=== PATIENT | female | born 1985 | race Caucasian/White ===

== ENCOUNTER 2017-06-27 17:51 | Emergency (ER) | payer OTHER ==
[2017-06-27 17:56] VITALS: BP 142/82; PULSE 78; RESP 18; TEMP 97.3
--- NOTE | 2017-06-27 18:18 | ED ---
ENT HPI - General Chief complaint: ENT Stated complaint: dental/facial pain Time Seen by Provider: 06/27/17 18:08 Source: patient, RN notes reviewed Mode of arrival: ambulatory Limitations: no limitations - History of Present Illness Initial comments: This is a 31-year-old female who presents to the emergency department with chief complaint of dental pain. Patient states that for one week she's had a flare up of her seasonal allergies. She states that she began with a runny nose and watery, itchy eyes. She states that then a couple of days ago she developed some sinus congestion and pressure. She states that yesterday she developed right upper dental pain and facial swelling. She states that her wisdom tooth never came in correctly and that she never saw a dentist about this. She is concerned for infection. Denies fevers or chills, chest pain or shortness breath, abdominal pain, nausea or vomiting. - Related Data Previous Rx's Medication Instructions Recorded Hydrocodone/Acetaminophen [[place] 1 each PO Q6HR PRN #12 tab 12/13/13 5-325] Penicillin V Potassium [Pen Vee K] 500 mg PO QID 10 Days tab 06/27/17 Allergies Allergy/AdvReac Type Severity Reaction Status Date / Time No Known Allergies Allergy Verified 06/27/17 17:56 Review of Systems ROS Statement: Those systems with pertinent positive or pertinent negative responses have been documented in the HPI. ROS Other: All systems not noted in ROS Statement are negative. Past Medical History Past Medical History: No Reported History History of Any Multi-Drug Resistant Organisms: None Reported Past Surgical History: Section, Tubal Ligation Past Psychological History: No Psychological Hx Reported Smoking Status: Current every day smoker Past Alcohol Use History: Occasional Past Drug Use History: None Reported General Exam - General Exam Comments Initial Comments: General: Awake and alert, well-developed; in no apparent distress. HEENT: Head atraumatic, normocephalic. Mild right-sided facial swelling. Pupils are equal, round and reactive to light. Extraocular movements intact. Oropharynx moist without erythema or exudate. Poor dentition throughout with multiple missing teeth and dental caries. There is tenderness on palpation of tooth #1, which is fractured. No masses or areas of fluctuance noted. Neck: Supple. Normal ROM. Cardiovascular: Regular rate and rhythm. No murmurs, rubs or gallops. Chest symmetrical. Respiratory: Lungs clear to auscultation bilaterally. No wheezes, rales or rhonchi. Normal respiratory effort with no use of accessory muscles. Musculoskeletal: Normal ROM, no tenderness bilateral upper and lower extremities. Ambulating normally. Skin: [place], warm and dry without rashes or lesions. Neurological: Alert and oriented x3. CN II-XII grossly intact. Speech is fluent and answers are appropriate. No focal neuro deficits. Psychiatric: Normal mood and affect. No overt signs of depression or anxiety noted. Limitations: no limitations Course Vital Signs 06/27/17 17:53 Temperature 97.3 F L Pulse Rate 78 Respiratory 18 Rate Blood Pressure 142/82 O2 Sat by Pulse 100 Oximetry Medical Decision Making - Medical Decision Making This is a 31-year-old female who presents to the emergency department with chief complaint of dental pain. Patient has mild right-sided facial swelling and tenderness of tooth #1 which is fractured. Vital signs are stable and patient is in no acute distress. Patient will be started on Penicillin VK. She will be given contact information for the [facility] dental clinic. Patient is in agreement with plan and voices understanding. She'll be discharged home at this time. All questions answered. Disposition Clinical Impression: Seasonal allergies, Toothache Disposition: HOME SELF-CARE Condition: Good Instructions: Toothache (ED), Allergic Rhinitis (ED) Additional Instructions: Please take medications as prescribed. Please follow up with primary care provider within 1-2 days. Return to emergency department if symptoms should worsen or any concerns arise. Please follow up with the [facility] dental clinic. [facility] [place] [address]. Phone number for new patients or for existing patients. Prescriptions: Penicillin V Potassium [Pen Vee K] 500 mg PO QID 10 Days tab Is patient prescribed a controlled substance at d/c from ED?: No Referrals: Rafael Lewis MD [Primary Care Provider] - 1-2 days Time of Disposition: 18:17
== END 2017-06-27 18:44 | disposition home or self-care (01) ==
LOC: EC 17:51
DX: J30.2 Other seasonal allergic rhinitis (principal); K08.89 Other specified disorders of teeth and supporting structures; S02.5XXA Fracture of tooth (traumatic), initial encounter for closed fracture; F17.200 Nicotine dependence, unspecified, uncomplicated; X58.XXXA Exposure to other specified factors, initial encounter
CPT/HCPCS: 99283

== ENCOUNTER 2017-12-09 04:37 | Inpatient (IN) | payer OTHER ==
[2017-12-09] MEDS ORDERED: ONDANSETRON 4 MG/2 ML VIAL IVP STA ×2 (05:16→05:49)
[2017-12-09] MEDS ORDERED: SODIUM CHLORIDE 0.9% 500 ML 500 ML IV STA (05:27)
[2017-12-09 05:30] LABS: Basophils % (A) 0 %; Eosinophils # (A) 0.5 k/uL (0-0.7); Eosinophils % (A) 3 %; HCT 39.1 % (34.0-46.0); HGB 13.1 gm/dL (11.4-16.0); Lymphocytes % (A) 11 %; MCH 29.9 pg (25.0-35.0); MCHC 33.4 g/dL (31.0-37.0); MCV 89.5 fL (80.0-100.0); Mean Platelet Volume 7.4; Monocytes # (A) 0.6 k/uL (0-1.0); Monocytes % (A) 3 %; Neutrophils # (A) 15.4 k/uL (1.3-7.7); Neutrophils % (A) 82 %; Platelet Count 350 k/uL (150-450); RBC 4.36 m/uL (3.80-5.40); WBC 18.8 k/uL (3.8-10.6)
[2017-12-09 05:36] LABS: Appearance,Urine Cloudy (Clear); Bacteria,Urine Occasional /hpf; Bilirubin,Urine Negative (Negative); Blood,Urine Trace (Negative); Color,Urine Yellow; Glucose,Urine (UA) Negative (Negative); Ketones,Urine Negative (Negative); Leukocyte Esterase,Urine Small (Negative); Mucus,Urine Many /hpf; Nitrite,Urine Negative (Negative); PH, Urine 6.5 (5.0-8.0); Protein,Urine Trace (Negative); RBC,Urine 3 /hpf (0-5); Specific Gravity,Urine 1.018 (1.001-1.035); Squamous Epithelial Cell,Urine 41 /hpf (0-4); WBC,Urine 21 /hpf (0-5)
[2017-12-09 05:39] LABS: ALT 25 U/L (9-52); AST 15 U/L (14-36); Albumin 3.9 g/dL (3.5-5.0); Alkaline Phosphatase 85 U/L (38-126); Amylase 41 U/L (30-110); Anion Gap 5 mmol/L; Blood Urea Nitrogen 9 mg/dL (7-17); Calcium 9.3 mg/dL (8.4-10.2); Carbon Dioxide 26 mmol/L (22-30); Chloride 109 mmol/L (98-107); Glucose 122 mg/dL (74-99); Lipase 84 U/L (23-300); Potassium 4.2 mmol/L (3.5-5.1); Sodium 140 mmol/L (137-145); Total Bilirubin 0.3 mg/dL (0.2-1.3)
[2017-12-09] MEDS ORDERED: MORPHINE SULFATE 4 MG/ML SYRINGE IV STA (05:49)
--- NOTE | 2017-12-09 05:54 | ED ---
Abdominal Pain HPI - General Source: patient Mode of arrival: ambulatory Limitations: no limitations - History of Present Illness MD Complaint: abdominal pain -: hour(s) Location: RUQ Radiation: back Migration to: no migration Severity: severe Quality: stabbing Consistency: constant Improves With: nothing Worsens With: nothing Associated Symptoms: nausea, vomiting <Cisco Weeks - Last Filed: 12/09/17 06:43> <Car Delacruz - Last Filed: 12/09/17 08:20> - General Chief Complaint: Abdominal Pain Stated Complaint: vomiting Time Seen by Provider: 12/09/17 04:49 - History of Present Illness Initial Comments: This patient is a 32-year-old woman who presents to be evaluated for right upper quadrant abdominal pain as well as nausea and vomiting. The patient states that she has been having intermittent symptoms like this going back until she was with her daughter, proximal 4 years ago. She states that at that time she had an ultrasound that showed a lot of gallstones. She states that sometimes when she eats certain things this seems to flareup. She did have some fried catfish around 10 PM. She started having symptoms around midnight, including right upper quadrant pain that radiated to the back as well as multiple rounds of nausea and vomiting. The pain is sharp, was severe but has abated a little bit. She has not noted other worsening or relieving factors. (Cisco Weeks) - Related Data Previous Rx's Medication Instructions Recorded Hydrocodone/Acetaminophen [[place] 1 each PO Q6HR PRN #12 tab 12/13/13 5-325] Penicillin V Potassium [Pen Vee K] 500 mg PO QID 10 Days tab 06/27/17 Allergies Allergy/AdvReac Type Severity Reaction Status Date / Time No Known Allergies Allergy Verified 12/09/17 04:44 Review of Systems ROS Other: All systems not noted in ROS Statement are negative. Constitutional: Denies: fever, chills Respiratory: Denies: cough, dyspnea Cardiovascular: Denies: chest pain, palpitations, edema Gastrointestinal: Reports: abdominal pain, nausea, vomiting. Denies: diarrhea, constipation, hematemesis, melena, hematochezia Genitourinary: Denies: dysuria, hematuria Musculoskeletal: Denies: back pain Skin: Denies: rash Neurological: Denies: headache <Cisco Weeks - Last Filed: 12/09/17 06:43> ROS Other: All systems not noted in ROS Statement are negative. <Car Delacruz - Last Filed: 12/09/17 08:20> ROS Statement: Those systems with pertinent positive or pertinent negative responses have been documented in the HPI. Past Medical History Past Medical History: No Reported History Additional Past Medical History / Comment(s): gall stones History of Any Multi-Drug Resistant Organisms: None Reported Past Surgical History: Section, Tubal Ligation Past Psychological History: No Psychological Hx Reported Smoking Status: Current every day smoker Past Alcohol Use History: Occasional Past Drug Use History: None Reported <Cisco Weeks - Last Filed: 12/09/17 06:43> General Exam Limitations: no limitations General appearance: alert, in no apparent distress Head exam: Present: atraumatic, normocephalic Eye exam: Present: normal appearance. Absent: scleral icterus, conjunctival injection Respiratory exam: Present: normal lung sounds bilaterally. Absent: respiratory distress, wheezes, rales, rhonchi, stridor Cardiovascular Exam: Present: regular rate, normal rhythm, normal heart sounds. Absent: systolic murmur, diastolic murmur, rubs, gallop GI/Abdominal exam: Present: soft, tenderness. Absent: distended, guarding, rebound, rigid, mass, pulsatile mass Extremities exam: Present: normal inspection, normal capillary refill. Absent: pedal edema, calf tenderness Back exam: Present: normal inspection. Absent: CVA tenderness (R), CVA tenderness (L) Neurological exam: Present: alert Skin exam: Present: warm, dry, intact, normal color. Absent: rash <Cisco Weeks - Last Filed: 12/09/17 06:43> Vital Signs 12/09/17 04:42 Temperature 97.7 F Pulse Rate 56 L Respiratory 18 Rate Blood Pressure 135/90 O2 Sat by Pulse 100 Oximetry Medical Decision Making - Lab Data Result diagrams: 12/09/17 05:13 12/09/17 05:13 <Cisco Weeks - Last Filed: 12/09/17 06:43> - Lab Data Result diagrams: 12/09/17 05:13 12/09/17 05:13 <Car Delacruz - Last Filed: 12/09/17 08:20> - Lab Data Lab Results 12/09/17 12/09/17 12/09/17 Range/Units 05:13 05:13 05:13 WBC 18.8 H (3.8-10.6) k/uL RBC 4.36 (3.80-5.40) m/uL Hgb 13.1 (11.4-16.0) gm/dL Hct 39.1 (34.0-46.0) % MCV 89.5 (80.0-100.0) fL MCH 29.9 (25.0-35.0) pg MCHC 33.4 (31.0-37.0) g/dL RDW 13.0 (11.5-15.5) % Plt Count 350 (150-450) k/uL Neutrophils % 82 % Lymphocytes % 11 % Monocytes % 3 % Eosinophils % 3 % Basophils % 0 % Neutrophils # 15.4 H (1.3-7.7) k/uL Lymphocytes # 2.0 (1.0-4.8) k/uL Monocytes # 0.6 (0-1.0) k/uL Eosinophils # 0.5 (0-0.7) k/uL Basophils # 0.0 (0-0.2) k/uL Sodium 140 (137-145) mmol/L Potassium 4.2 (3.5-5.1) mmol/L Chloride 109 H (98-107) mmol/L Carbon Dioxide 26 (22-30) mmol/L Anion Gap 5 mmol/L BUN 9 (7-17) mg/dL Creatinine 0.64 (0.52-1.04) mg/dL Est GFR (CKD-EPI)AfAm >90 (>60 ml/min/1.73 sqM) Est GFR (CKD-EPI)NonAf >90 (>60 ml/min/1.73 sqM) Glucose 122 H (74-99) mg/dL Calcium 9.3 (8.4-10.2) mg/dL Total Bilirubin 0.3 (0.2-1.3) mg/dL AST 15 (14-36) U/L ALT 25 (9-52) U/L Alkaline Phosphatase 85 (38-126) U/L Total Protein 7.0 (6.3-8.2) g/dL Albumin 3.9 (3.5-5.0) g/dL Amylase 41 (30-110) U/L Lipase 84 (23-300) U/L Urine Color Urine Appearance (Clear) Urine pH (5.0-8.0) Ur Specific [place] (1.001-1.035) Urine Protein (Negative) Urine Glucose (UA) (Negative) Urine Ketones (Negative) Urine Blood (Negative) Urine Nitrite (Negative) Urine Bilirubin (Negative) Urine Urobilinogen (<2.0) mg/dL Ur Leukocyte Esterase (Negative) Urine RBC (0-5) /hpf Urine WBC (0-5) /hpf Ur Squamous Epith Cells (0-4) /hpf Urine Bacteria (None) /hpf Urine Mucus (None) /hpf Urine HCG, Qual Not Detected (Not Detectd) 12/09/17 Range/Units 05:13 WBC (3.8-10.6) k/uL RBC (3.80-5.40) m/uL Hgb (11.4-16.0) gm/dL Hct (34.0-46.0) % MCV (80.0-100.0) fL MCH (25.0-35.0) pg MCHC (31.0-37.0) g/dL RDW (11.5-15.5) % Plt Count (150-450) k/uL Neutrophils % % Lymphocytes % % Monocytes % % Eosinophils % % Basophils % % Neutrophils # (1.3-7.7) k/uL Lymphocytes # (1.0-4.8) k/uL Monocytes # (0-1.0) k/uL Eosinophils # (0-0.7) k/uL Basophils # (0-0.2) k/uL Sodium (137-145) mmol/L Potassium (3.5-5.1) mmol/L Chloride (98-107) mmol/L Carbon Dioxide (22-30) mmol/L Anion Gap mmol/L BUN (7-17) mg/dL Creatinine (0.52-1.04) mg/dL Est GFR (CKD-EPI)AfAm (>60 ml/min/1.73 sqM) Est GFR (CKD-EPI)NonAf (>60 ml/min/1.73 sqM) Glucose (74-99) mg/dL Calcium (8.4-10.2) mg/dL Total Bilirubin (0.2-1.3) mg/dL AST (14-36) U/L ALT (9-52) U/L Alkaline Phosphatase (38-126) U/L Total Protein (6.3-8.2) g/dL Albumin (3.5-5.0) g/dL Amylase (30-110) U/L Lipase (23-300) U/L Urine Color Yellow Urine Appearance Cloudy H (Clear) Urine pH 6.5 (5.0-8.0) Ur Specific [place] 1.018 (1.001-1.035) Urine Protein Trace H (Negative) Urine Glucose (UA) Negative (Negative) Urine Ketones Negative (Negative) Urine Blood Trace H (Negative) Urine Nitrite Negative (Negative) Urine Bilirubin Negative (Negative) Urine Urobilinogen 2.0 (<2.0) mg/dL Ur Leukocyte Esterase Small H (Negative) Urine RBC 3 (0-5) /hpf Urine WBC 21 H (0-5) /hpf Ur Squamous Epith Cells 41 H (0-4) /hpf Urine Bacteria Occasional H (None) /hpf Urine Mucus Many H (None) /hpf Urine HCG, Qual (Not Detectd) Disposition <Cisco Weeks - Last Filed: 12/09/17 06:43> Time of Disposition: 08:20 <Car Delacruz - Last Filed: 12/09/17 08:20> Clinical Impression: Acute cholecystitis Disposition: ADMITTED IP TO THIS HOSP Referrals: Rafael Lewis MD [Primary Care Provider] - 1-2 days
--- NOTE | 2017-12-09 07:50 | US ---
EXAMINATION TYPE: US abdomen limited DATE OF EXAM: 12/09/2017 COMPARISON: Previous study dated 09/14/2013. CLINICAL HISTORY: Pain, attention RUQ. abd pain EXAM MEASUREMENTS: Liver Length: 16.4 cm Gallbladder Wall: 0.4 cm CBD: 0.7 cm Right Kidney: 11.0 x 5.2 x 4.9 cm Pancreas: wnl Liver: wnl Gallbladder: multiple large stones seen with thickened wall Evidence for sonographic Garrison's sign: no, but on pain medication CBD: upper limits of normal for size Right Kidney: wnl Limited views of the pancreas are normal. The liver is normal in size without biliary dilatation. There are multiple stones within the gallbladder. The gallbladder wall is thickened measuring 4 mm. D istal common hepatic duct measures 7 mm. There is no sonographic Garrison's sign. The right kidney is unremarkable. IMPRESSION: CHOLELITHIASIS AND POSSIBLE CHOLECYSTITIS. THIS MAY BE CHRONIC IN NATURE.
[2017-12-09] MEDS ORDERED: SODIUM CHLORIDE 0.9% 1,000 ML IV ONE (08:21)
[2017-12-09] MEDS ORDERED: PIPERACILLIN-TAZOBACTAM 3.375 GM in SODIUM CHLORIDE 0.9% 100 ML IVPB STA (08:21)
[2017-12-09] MEDS ORDERED: NICOTINE 21MG/24HR PATCH TRANSDERM STA (08:54)
[2017-12-09 10:12] VITALS: BMI 31.1
[2017-12-09] MEDS ORDERED: NICOTINE 21MG/24HR PATCH TRANSDERM ONE (12:00)
--- NOTE | 2017-12-09 12:37 | P.GSHP ---
History of Present Illness H&P Date: 12/09/17 Chief Complaint: Acute cholecystitis 32-year-old female presents to the ER early this morning with complaints of right upper quadrant pain and vomiting. Symptoms began around 4:00. She has had episodes like this intermittently over the last few weeks. She first had a gallbladder attack while she was 5 years ago. She only had about 1-2 attacks between her and now. Complaining of right upper quadrant pain and intractable vomiting. Some radiation to the back. No fevers or chills. No change in the color of her skin urine or stool. White blood cell count elevated. Liver enzymes normal. - Review of Systems Comment: The patient denies any acute changes in vision or hearing, no dysphagia or odynophagia, no chest pain or shortness of breath, no dysuria or hematuria, no headache, no runny nose, no rectal bleeding or melena, no unexplained weight loss Past Medical History Past Medical History: No Reported History Additional Past Medical History / Comment(s): gall stones History of Any Multi-Drug Resistant Organisms: None Reported Past Surgical History: Section, Tubal Ligation Past Anesthesia/Blood Transfusion Reactions: No Reported Reaction Past Psychological History: Depression Additional Psychological History / Comment(s): not medicated Smoking Status: Current every day smoker Past Alcohol Use History: Occasional Past Drug Use History: None Reported - Past Family History Father Family Medical History: Thyroid Disorder Medications and Allergies Home Medications Medication Instructions Recorded Confirmed Type No Known Home Medications 12/09/17 12/09/17 History Allergies Allergy/AdvReac Type Severity Reaction Status Date / Time No Known Allergies Allergy Verified 12/09/17 11:55 Surgical - Exam Vital Signs Temp Pulse Resp BP Pulse Ox 97.7 F 56 L 18 135/90 100 12/09/17 04:42 12/09/17 04:42 12/09/17 04:42 12/09/17 04:42 12/09/17 04:42 Physical exam: General: Well-developed, well-nourished HEENT: Normocephalic, sclerae nonicteric Abdomen: Right upper quadrant tenderness, nondistended Extremities: No edema Neuro: Alert and oriented Results - Labs 12/09/17 05:13 12/09/17 05:13 Abnormal Lab Results - Last 24 Hours (Table) 12/09/17 12/09/17 12/09/17 Range/Units 05:13 05:13 05:13 WBC 18.8 H (3.8-10.6) k/uL Neutrophils # 15.4 H (1.3-7.7) k/uL Chloride 109 H (98-107) mmol/L Glucose 122 H (74-99) mg/dL Urine Appearance Cloudy H (Clear) Urine Protein Trace H (Negative) Urine Blood Trace H (Negative) Ur Leukocyte Esterase Small H (Negative) Urine WBC 21 H (0-5) /hpf Ur Squamous Epith Cells 41 H (0-4) /hpf Urine Bacteria Occasional H (None) /hpf Urine Mucus Many H (None) /hpf Diabetes panel 12/09/17 Range/Units 05:13 Sodium 140 (137-145) mmol/L Potassium 4.2 (3.5-5.1) mmol/L Chloride 109 H (98-107) mmol/L Carbon Dioxide 26 (22-30) mmol/L BUN 9 (7-17) mg/dL Creatinine 0.64 (0.52-1.04) mg/dL Glucose 122 H (74-99) mg/dL Calcium 9.3 (8.4-10.2) mg/dL AST 15 (14-36) U/L ALT 25 (9-52) U/L Alkaline Phosphatase 85 (38-126) U/L Total Protein 7.0 (6.3-8.2) g/dL Albumin 3.9 (3.5-5.0) g/dL Calcium panel 12/09/17 Range/Units 05:13 Calcium 9.3 (8.4-10.2) mg/dL Albumin 3.9 (3.5-5.0) g/dL Pituitary panel 12/09/17 Range/Units 05:13 Sodium 140 (137-145) mmol/L Potassium 4.2 (3.5-5.1) mmol/L Chloride 109 H (98-107) mmol/L Carbon Dioxide 26 (22-30) mmol/L BUN 9 (7-17) mg/dL Creatinine 0.64 (0.52-1.04) mg/dL Glucose 122 H (74-99) mg/dL Calcium 9.3 (8.4-10.2) mg/dL Adrenal panel 12/09/17 Range/Units 05:13 Sodium 140 (137-145) mmol/L Potassium 4.2 (3.5-5.1) mmol/L Chloride 109 H (98-107) mmol/L Carbon Dioxide 26 (22-30) mmol/L BUN 9 (7-17) mg/dL Creatinine 0.64 (0.52-1.04) mg/dL Glucose 122 H (74-99) mg/dL Calcium 9.3 (8.4-10.2) mg/dL Total Bilirubin 0.3 (0.2-1.3) mg/dL AST 15 (14-36) U/L ALT 25 (9-52) U/L Alkaline Phosphatase 85 (38-126) U/L Total Protein 7.0 (6.3-8.2) g/dL Albumin 3.9 (3.5-5.0) g/dL Assessment and Plan (1) Acute cholecystitis Narrative/Plan: Clinical scenario discussed in detail with the patient. We'll proceed with laparoscopic, possible open cholecystectomy. Risks of bleeding, infection, bile leak, bile duct injury, retained common bile duct stone, trocar injury, conversion to an open procedure, hernia, anesthesia related complications were reviewed. The patient understands and wishes to proceed. Current Visit: Yes Status: Acute Code(s): K81.0 - ACUTE CHOLECYSTITIS SNOMED Code(s): 61066269
[2017-12-09] MEDS ORDERED: IV FLUID CONTINUATION 600 ML IV ONE (12:53)
[2017-12-09] MEDS ORDERED: SUCCINYLCHOLINE CHLORIDE 100 MG/5 ML SYR IV ONE (12:53)
[2017-12-09] MEDS ORDERED: MIDAZOLAM 2 MG/2 ML VIAL ONE (12:53)
[2017-12-09] MEDS ORDERED: LIDOCAINE 1% INJ 10MG/ML (20 ML MDV) ONE (12:53)
[2017-12-09] MEDS ORDERED: ROCURONIUM BROMIDE 10 MG/ML 10 ML VIAL IV ONE (12:53)
[2017-12-09] MEDS ORDERED: GLYCOPYRROLATE 0.2 MG/ML 2 ML VIAL ONE (12:53)
[2017-12-09] MEDS ORDERED: HYDROmorphone (PF) 1 MG/ML ONE (12:53)
[2017-12-09] MEDS ORDERED: NEOSTIGMINE 1 MG/ML 10 ML VIAL ONE (12:53)
[2017-12-09] MEDS ORDERED: fentaNYL (PF) 50 MCG/ML 2 ML AMP ONE (12:53)
[2017-12-09] MEDS ORDERED: KETOROLAC 30 MG/ML 1 ML VIAL ONE (12:53)
[2017-12-09] MEDS ORDERED: PROPOFOL 10 MG/ML 20 ML VIAL IV ONE (12:53)
[2017-12-09] MEDS ORDERED: BUPIVACAIN-EPI 0.25%-1:200,000 30 ML VIAL SQ ONE ×2 (13:21→14:19)
[2017-12-09] MEDS ORDERED: LACTATED RINGERS 1,000 ML IV ONE (14:19)
[2017-12-09] MEDS ORDERED: METOCLOPRAMIDE 5 MG/ML 2 ML VIAL IVP PRN (14:21)
[2017-12-09] MEDS ORDERED: NALOXONE 0.4 MG/ML 1 ML VIAL IV PRN (14:21)
[2017-12-09] MEDS ORDERED: HYDROcodone/APAP 5-325MG 1 EACH TAB PO PRN (14:21)
[2017-12-09] MEDS ORDERED: ONDANSETRON 4 MG/2 ML VIAL IVP PRN (14:21)
--- NOTE | 2017-12-09 14:26 | P.OP ---
Date of Procedure: 12/09/17 Procedure(s) Performed: PREOPERATIVE DIAGNOSIS: Acute cholecystitis POSTOPERATIVE DIAGNOSIS: Same PROCEDURE: Laparoscopic cholecystectomy SURGEON: Leola EBL: Minimal see anesthesia record ANESTHESIA: Gen. COMPLICATIONS: None OPERATIVE PROCEDURE: The patient was brought and placed on the operating room table in the supine position. The patient was placed under general anesthesia at that time. The abdomen was prepped and draped in the usual sterile fashion. A small vertical infraumbilical incision was made. The fascia was grasped with the Carolin forceps. The fascia was retracted anteriorly. The Veress needle was advanced into the peritoneal cavity. The saline drop test was normal. Insufflation took place up to 15 mmHg. A 5 mm optical trocar was advanced and the peritoneal cavity. 2 additional 5 mm trochars were placed in the right upper quadrant under direct visualization. A 12 mm trocar was advanced into the epigastric incision site. The gallbladder had a thickened wall with edema present. No gangrene was seen. The gallbladder was retracted superiorly and laterally. The peritoneum overlying the infundibulum was bluntly dissected. The patient's cystic duct was visualized. The junction between the cystic duct common and hepatic duct was identified. The cystic duct was then divided after placement of 3 12 mm clips on the patient's side and one on the specimen side. The cystic artery was identified and clipped as well. A small vessel was seen along the gallbladder fossa and clipped as well. The gallbladder was then removed from the liver bed using electrocautery. The gallbladder was then removed from the epigastric trocar site with an Endo Catch bag. The fascia had to be lengthened to remove the large specimen. I placed a drain in the gallbladder fossa exiting through the most lateral 5 mm site. The gallbladder fossa was irrigated with saline. There was no evidence of any bleeding or biliary drainage seen. The trochars were then removed. The fascia at the 12 millimeter site was closed using a running 0 Vicryl stitch. The skin at all 4 sites was closed using a 4-0 Monocryl stitch. Skin glue was used on the incision sites. At the end of this procedure the sponge and needle counts were correct. DISPOSITION: Stable to the recovery room
[2017-12-09] MEDS ORDERED: HYDROmorphone 1 MG/ML 1 ML SYRINGE IVP ONE ×2 (14:49→14:54)
[2017-12-09] MEDS: PIPERACILLIN-TAZOBACTAM 3.375 GM in SODIUM CHLORIDE 0.9% 100 ML IVPB SCH (16:55)
[2017-12-09] MEDS: HEPARIN SODIUM,PORCINE 5,000 UNIT/ML 1 ML VIAL SQ SCH (16:56)
[2017-12-09] MEDS: HYDROmorphone 1 MG/ML 1 ML SYRINGE IVP PRN (20:08)
[2017-12-09] MEDS: DOCUSATE 100 MG CAP PO SCH (20:17)
[2017-12-09] MEDS: FAMOTIDINE 20 MG TAB PO SCH (20:17)
[2017-12-09 21:41] VITALS: RESP 16
[2017-12-10] MEDS: PIPERACILLIN-TAZOBACTAM 3.375 GM in SODIUM CHLORIDE 0.9% 100 ML IVPB SCH ×2 (00:33→07:29)
[2017-12-10] MEDS: HEPARIN SODIUM,PORCINE 5,000 UNIT/ML 1 ML VIAL SQ SCH ×2 (00:33→07:29)
[2017-12-10] MEDS: HYDROmorphone 1 MG/ML 1 ML SYRINGE IVP PRN ×2 (01:41→06:51)
[2017-12-10 08:20] VITALS: TEMP 98.2
[2017-12-10] MEDS: DOCUSATE 100 MG CAP PO SCH (09:02)
[2017-12-10] MEDS: FAMOTIDINE 20 MG TAB PO SCH (09:02)
[2017-12-10 09:21] LABS: Basophils # (A) 0.1 k/uL (0-0.2); Basophils % (A) 1 %; Eosinophils # (A) 0.2 k/uL (0-0.7); Eosinophils % (A) 2 %; HCT 35.7 % (34.0-46.0); HGB 11.5 gm/dL (11.4-16.0); Lymphocytes # (A) 2.9 k/uL (1.0-4.8); Lymphocytes % (A) 25 %; MCH 29.3 pg (25.0-35.0); MCHC 32.2 g/dL (31.0-37.0); MCV 91.2 fL (80.0-100.0); Mean Platelet Volume 7.1; Monocytes # (A) 0.5 k/uL (0-1.0); Monocytes % (A) 5 %; Neutrophils # (A) 7.6 k/uL (1.3-7.7); Neutrophils % (A) 66 %; Platelet Count 281 k/uL (150-450); RBC 3.91 m/uL (3.80-5.40); RDW 12.9 % (11.5-15.5); WBC 11.5 k/uL (3.8-10.6)
--- NOTE | 2017-12-10 10:03 | P.DS ---
<Niki Reyes - Last Filed: 12/10/17 09:56> Providers Date of admission: 12/09/17 08:22 Expected date of discharge: 12/10/17 Attending physician: Blade Fernandez Primary care physician: Rafael Johnson [facility] Course: 32-year-old female presented on the day of admission to the emergency room with a chief complaint of developing right upper quadrant abdominal pain associated nausea vomiting. Stated symptoms had occurred around 4 had 2 prior episodes over the last several weeks resolved on her own. No fever chills. White count was elevated 18.8. Ultrasound of the abdomen report reviewed cholelithiasis and possible cholecystitis may be chronic in nature multiple gallstones within the gallbladder liver enzymes were not elevated. Patient underwent an December 09 laparoscopic cholecystectomy for acute cholecystitis on the day of discharge pain medication effective for pain control patient up ambulating in the unit. Surgical dressing site dry Nicanor-Torre drain serous drainage low output. Patient was tolerating diet with no nausea and vomiting. Was anxious to be discharged. Impression discharge diagnoses Present on admission right upper quadrant abdominal pain suspect due to acute cholecystitis Current every day smoker Present on admission leukocytosis suspect due to acute cholecystitis reactive Status post December 09 laparoscopic cholecystectomy due to acute cholecystitis The above impression and plan of care have been discussed and directed by signing physician. Niki Reyes nurse practitioner acting as scribe for signing physician. Plan - Discharge Summary New Discharge Prescriptions: New HYDROcodone/APAP 5-325MG [[place] 5-325] 1 each PO Q4HR PRN #12 tab PRN Reason: Mild Pain Discharge Medication List HYDROcodone/APAP 5-325MG [[place] 5-325] 1 each PO Q4HR PRN #12 tab 12/10/17 [Rx] Follow up Appointment(s)/Referral(s): Blade Fernandez MD [Medical Doctor] - 12/13/17 10:20 am Rafael Lewis MD [Primary Care Provider] - 1-2 Days Activity/Diet/Wound Care/Special Instructions: No tub bath for six weeks. Shower daily. No lifting over 10 pounds for the next 2 weeks. Monitor RAFFI drain and record.(see raffi care sheet) May use ice packs to surgical site. No driving while taking narcotic for pain. May return to work once seen by Dr. fernandez call office for any fever, chills , increased redness or discolored drainage to puncture sites.and significant change or concerns about drainage from drains, increased pain not covered by pain meds or any concerns. Continue to use incentive spirometery at home. Last received 1 norco at 1000 Discharge Disposition: HOME SELF-CARE <Blade Fernandez - Last Filed: 12/10/17 11:15> - Discharge Diagnosis(es) (1) Acute cholecystitis Current Visit: Yes Status: Acute Hospital Course: As above. Patient doing well today. RAFFI drain is serosanguineous. She would like to go home. We'll discharge today with plans for outpatient follow-up this .
[2017-12-10 10:12] LABS: ALT 22 U/L (9-52); AST 18 U/L (14-36); Albumin 3.1 g/dL (3.5-5.0); Alkaline Phosphatase 64 U/L (38-126); Anion Gap 5 mmol/L; Blood Urea Nitrogen 6 mg/dL (7-17); Calcium 8.6 mg/dL (8.4-10.2); Carbon Dioxide 27 mmol/L (22-30); Chloride 109 mmol/L (98-107); Glucose 120 mg/dL (74-99); Potassium 3.7 mmol/L (3.5-5.1); Sodium 141 mmol/L (137-145); Total Bilirubin 0.3 mg/dL (0.2-1.3); Total Protein 5.8 g/dL (6.3-8.2)
[2017-12-10 11:40] VITALS: BP 114/74; PULSE 59
== END 2017-12-10 12:00 | disposition home or self-care (01) | DRG 419 ==
LOC: EC 04:37 → 6PED 08:22
PROVIDERS: ADMIT Surgery; ATTEND Surgery
PROC: 0FT44ZZ Resection of Gallbladder, Percutaneous Endoscopic Approach (ICD-10-PCS; principal; 2017-12-09 12:30)
DX: K80.00 Calculus of gallbladder with acute cholecystitis without obstruction (principal); F17.200 Nicotine dependence, unspecified, uncomplicated; F32.9 Major depressive disorder, single episode, unspecified
CPT/HCPCS: 36415; 76705; 80053; 81001; 81025; 82150; 83690; 85025; 87040; 88304; 96361; 96374; 96375; 99285

== ENCOUNTER 2019-01-27 13:46 | Emergency (ER) | payer OTHER ==
[2019-01-27 14:21] VITALS: RESP 18
[2019-01-27] MEDS ORDERED: PENICILLIN V POTASSIUM 250 MG TAB PO STA (15:23)
[2019-01-27] MEDS ORDERED: PENICILLIN VK 500MG STARTER 4 TAB BTL PO STA (15:23)
--- NOTE | 2019-01-27 15:54 | ED ---
General Adult HPI - General Chief complaint: Dental/Oral Stated complaint: Oral Pain Time Seen by Provider: 01/27/19 14:38 Source: patient, RN notes reviewed, old records reviewed Mode of arrival: ambulatory Limitations: no limitations - History of Present Illness Initial comments: 33-year-old female patient with past history of tubal ligation presents to ED for chief complaint of right dental abscess. Patient was has been ongoing for 3 days. Denies any chance of being . Denies any other complaints. Systemic: Pt denies fatigue, fever/chills, rash. Pt denies weakness, night sweats, weight loss. Neuro: Pt denies headache, visual disturbances, syncope or pre-syncope. HEENT: Pt denies ocular discharge or irritation, otalgia, rhinorrhea, ph aryngitis or notable lymphadenopathy. Cardiopulmonary: Pt denies chest pain, SOB, heart palpitations, dyspnea on exertion. Abdominal/GI: Pt denies abdominal pain, n/v/d. : Pt denies dysuria, burning w/ urination, frequency/urgency. Denies new onset urinary or bowel incontinence. MSK: Pt denies myalgia, loss of strength or function in extremities. Neuro: Pt denies new onset weakness, paresthesias. - Related Data Previous Rx's Medication Instructions Recorded HYDROcodone/APAP 5-325MG [[place] 1 each PO Q4HR PRN #12 tab 12/10/17 5-325] Penicillin V Potassium [Pen Vee K] 500 mg PO QID #40 tablet 01/27/19 Allergies Allergy/AdvReac Type Severity Reaction Status Date / Time No Known Allergies Allergy Verified 01/27/19 14:21 Review of Systems ROS Statement: Those systems with pertinent positive or pertinent negative responses have been documented in the HPI. ROS Other: All systems not noted in ROS Statement are negative. Past Medical History Past Medical History: No Reported History Additional Past Medical History / Comment(s): gallstones History of Any Multi-Drug Resistant Organisms: None Reported Past Surgical History: Section, Cholecystectomy, Tubal Ligation Past Anesthesia/Blood Transfusion Reactions: No Reported Reaction Past Psychological History: Depression Smoking Status: Current every day smoker Past Alcohol Use History: Occasional Past Drug Use History: Marijuana - Past Family History Father Family Medical History: Thyroid Disorder General Exam - General Exam Comments Initial Comments: Constitutional: NAD, AOX3, Pt has pleasant affect. HEENT: NC/AT, trachea midline, neck supple, no lymphadenopathy. Posterior pharynx non erythematous, without exudates. External ears appear normal, without discharge. Mucous membranes moist. Eyes PERRLA, EOM intact. There is no scleral icterus. No pallor noted. Dental abscess noted to right lower gum region. Approximately 3 cm. Size and drainage performed. Patient tolerated procedure well. Cardiopulmonary: RRR, no murmurs, rubs or gallops, no JVD noted. Lungs CTAB in anterior and posterior thayer. No peripheral edema. Abdominal exam: Abdomen soft and non-distended. Abdomen non-tender to palpation in all 4 quadrants. Bowel sounds active in LLQ. No hepatosplenomegaly. No ecchymosis Neuro: CN II-XII grossly intact. No nuchal rigidity. No raccon eyes, no renteria sign, no hemotympanum. No cervical spinal tenderness. MSK: No posterior calf tenderness bilaterally, homans sign negative bilaterally. Posterior tibialis and radial pulse +2 bilaterally. Sensation intact in upper and lower extremities. Full active ROM in upper and lower extremities, 5/5 s tregnth. Limitations: no limitations Course Vital Signs 01/27/19 14:18 Temperature 97.8 F Pulse Rate 88 Respiratory 18 Rate Blood Pressure 152/106 O2 Sat by Pulse 100 Oximetry Medical Decision Making - Medical Decision Making 33-year-old female patient with past history of tubal ligation presents to ED for chief complaint of right dental abscess. Patient was has been ongoing for 3 days. Denies any chance of being . Denies any other complaints. Physical exam displayed: Dental abscess noted to right lower gum region. Approximately 3 cm. Size and drainage performed. Patient tolerated procedure well. Patient discharged with penicillin VK and will be provided to follow-up with dentist as soon as possible. Case discussed with Dr. Suarez. Disposition Clinical Impression: Dental abscess Disposition: HOME SELF-CARE Condition: Stable Instructions (If sedation given, give patient instructions): Dental Abscess (ED) Additional Instructions: Take antibiotics as directed. Follow-up with dentist as soon as possible. Ret urn to ER if condition worsens. Prescriptions: Penicillin V Potassium [Pen Vee K] 500 mg PO QID #40 tablet Is patient prescribed a controlled substance at d/c from ED?: No Referrals: None,Stated [Primary Care Provider] - 1-2 days Magy Jain DDS [STAFF PHYSICIAN] - 1-2 days Car Recinos DDS [STAFF PHYSICIAN] - 1-2 days Ciera Mistry DDS [STAFF PHYSICIAN] - 1-2 days
[2019-01-27 16:03] VITALS: BP 146/88; PULSE 68; TEMP 98
== END 2019-01-27 16:01 | disposition home or self-care (01) ==
LOC: EC 13:46
DX: K04.7 Periapical abscess without sinus (principal); F17.200 Nicotine dependence, unspecified, uncomplicated; Z98.51 Tubal ligation status
CPT/HCPCS: 41800; 99283

== ENCOUNTER 2019-08-02 09:12 | Emergency (ER) | payer OTHER ==
[2019-08-02 09:19] VITALS: BP 134/83; PULSE 88; RESP 18; TEMP 98.2
[2019-08-02] MEDS ORDERED: CLINDAMYCIN 150 MG CAP PO STA (09:36)
[2019-08-02] MEDS ORDERED: IBUPROFEN 600 MG STARTER PACK 4 TAB BTL PO STA (09:37)
[2019-08-02] MEDS ORDERED: ACET/COD 300 MG/30 MG STARTER PACK 6 TAB BTL PO STA (09:37)
--- NOTE | 2019-08-02 09:43 | ED ---
ENT HPI - General Source: patient, RN notes reviewed, old records reviewed Mode of arrival: ambulatory Limitations: no limitations <Marquita Hernandez - Last Filed: 08/02/19 09:39> <Jaclyn Suarez - Last Filed: 08/03/19 01:57> - General Chief complaint: Dental/Oral Stated complaint: Dental abscess Time Seen by Provider: 08/02/19 09:24 - History of Present Illness Initial comments: This Patient is a 33-year-old female who presents emergency department today for evaluation for right lower dental pain. Patient complains of abscesses developed the past day. Patient states that she's had no fevers or chills. She reports is a recurrent abscess that treatment he needs to be drained occasionally. (Marquita Hernandez) - Related Data Previous Rx's Medication Instructions Recorded HYDROcodone/APAP 5-325MG [[place] 1 each PO Q4HR PRN #12 tab 12/10/17 5-325] Penicillin V Potassium [Pen Vee K] 500 mg PO QID #40 tablet 01/27/19 Clindamycin [Cleocin] 450 mg PO Q8H #90 cap 08/02/19 Allergies Allergy/AdvReac Type Severity Reaction Status Date / Time No Known Allergies Allergy Verified 08/02/19 09:19 Review of Systems ROS Other: All systems not noted in ROS Statement are negative. <Marquita Hernandez - Last Filed: 08/02/19 09:39> ROS Other: All systems not noted in ROS Statement are negative. <Jaclyn Suarez - Last Filed: 08/03/19 01:57> ROS Statement: Those systems with pertinent positive or pertinent negative responses have been documented in the HPI. Past Medical History Past Medical History: No Reported History Additional Past Medical History / Comment(s): gallstones History of Any Multi-Drug Resistant Organisms: None Reported Past Surgical History: Section, Cholecystectomy, Tubal Ligation Past Anesthesia/Blood Transfusion Reactions: No Reported Reaction Past Psychological History: Depression Smoking Status: Current every day smoker Past Alcohol Use History: Occasional Past Drug Use History: Marijuana - Past Family History Father Family Medical History: Thyroid Disorder <Marquita Hernandez - Last Filed: 08/02/19 09:39> General Exam Limitations: no limitations General appearance: alert, in no apparent distress Head exam: Present: atraumatic, normocephalic, normal inspection Eye exam: Present: normal appearance, PERRL, EOMI. Absent: scleral icterus, conjunctival injection, periorbital swelling ENT exam: Present: normal exam, mucous membranes moist. Absent: normal oropharynx (Is a poor dentition. Evidence of dental abscess over right lower molar.) Neck exam: Present: normal inspection. Absent: tenderness, meningismus, lymphadenopathy Respiratory exam: Present: normal lung sounds bilaterally. Absent: respiratory distress, wheezes, rales, rhonchi, stridor Cardiovascular Exam: Present: regular rate, normal rhythm, normal heart sounds. Absent: systolic murmur, diastolic murmur, rubs, gallop, clicks GI/Abdominal exam: Present: soft, normal bowel sounds. Absent: distended, tenderness, guarding, rebound, rigid Back exam: Present: normal inspection Psychiatric exam: Present: normal affect, normal mood Skin exam: Present: warm, dry, intact, normal color <Marquita Hernandez - Last Filed: 08/02/19 09:39> - General Exam Comments Initial Comments: 33-year-old female. Alert and oriented 3. No significant distress. (Marquita Hernandez) Course Vital Signs 08/02/19 09:14 Temperature 98.2 F Pulse Rate 88 Respiratory 18 Rate Blood Pressure 134/83 O2 Sat by Pulse 99 Oximetry Procedures - Incision & Drainage Indication: Right lower dental abscess Site: oral Size (cm): 3 Scalpel Used: #11 I&D Drainage Obtained: Pus, Blood Culture Obtained?: Yes Patient Tolerated Procedure: well, no complications <Marquita Hernandez - Last Filed: 08/02/19 09:39> Medical Decision Making <Marquita Hernandez - Last Filed: 08/02/19 09:39> <Jaclyn Suarez - Last Filed: 08/03/19 01:57> - Medical Decision Making 32-year-old female presents emergency room today for dental abscess in the right lower jaw. Patient states abscess was incised and drained approximately 10 mL of purulent fluid was removed. Patient started on clindamycin and advised to do saline rinses and blistering Lantus. Advised following up with dentist. (Marquita Hernandez) I was available for consultation in the emergency department. The history and physical exam were done by the midlevel provider. I was consulted for this patients care. I reviewed the case with the midlevel provider and based on their presentation of the patient, I agree with the assessment, medical decision making and plan of care as documented. The patient did not demonstrate any signs of ludwigs angina or airway compromise Chart was dictated using [employer] dictation software. Attempts were made to correct any dictation errors however some typographical errors may persist. Patient was seen during a national state of emergency due to the Covid-19 pandemic. (Jaclyn Suarez) Disposition Is patient prescribed a controlled substance at d/c from ED?: No Time of Disposition: 09:41 <Marquita Hernandez - Last Filed: 08/02/19 09:39> <Jaclyn Suarez - Last Filed: 08/03/19 01:57> Clinical Impression: Dental abscess Disposition: HOME SELF-CARE Condition: Good Additional Instructions: [facility] [address] [place] [address] [phone] (existing clients only) For new clients: [phone] 1st consult: $50 (includes Xrays) Usually 30% less then private dentist for visits after. [employer] Have to pay $50 for Xrays anmd rest is covered. [phone] Patient should take the entire antibiotic as prescribed. Patient should do Listerine rinses. Return to the emergency department if any alarming signs or symptoms occur. Prescriptions: Clindamycin [Cleocin] 450 mg PO Q8H #90 cap Referrals: None,Stated [Primary Care Provider] - 1-2 days
== END 2019-08-02 10:00 | disposition home or self-care (01) ==
LOC: EC 09:12
DX: K04.7 Periapical abscess without sinus (principal); F17.200 Nicotine dependence, unspecified, uncomplicated
CPT/HCPCS: 41800; 99283

== ENCOUNTER 2019-11-06 11:28 | Inpatient (IN) | payer OTHER ==
[2019-11-06] MEDS ORDERED: IBUPROFEN 600 MG TAB PO STA (12:02)
[2019-11-06 12:10] LABS: Basophils # (A) 0.1 k/uL (0-0.2); Basophils % (A) 0 %; Eosinophils # (A) 0.2 k/uL (0-0.7); Eosinophils % (A) 1 %; HGB 14.8 gm/dL (11.4-16.0); Lymphocytes # (A) 0.6 k/uL (1.0-4.8); Lymphocytes % (A) 3 %; MCH 30.6 pg (25.0-35.0); MCHC 32.8 g/dL (31.0-37.0); MCV 93.3 fL (80.0-100.0); Mean Platelet Volume 7.2; Monocytes # (A) 0.3 k/uL (0-1.0); Monocytes % (A) 2 %; Neutrophils # (A) 18.4 k/uL (1.3-7.7); Neutrophils % (A) 94 %; Platelet Count 260 k/uL (150-450); RBC 4.82 m/uL (3.80-5.40); RDW 12.3 % (11.5-15.5); WBC 19.7 k/uL (3.8-10.6)
[2019-11-06 12:16] LABS: Appearance,Urine Cloudy (Clear); Bacteria,Urine Occasional /hpf; Bilirubin,Urine 1+ (Negative); Blood,Urine Moderate (Negative); Color,Urine Dark Brown; Glucose,Urine (UA) Negative (Negative); Ketones,Urine Trace (Negative); Leukocyte Esterase,Urine Trace (Negative); Mucus,Urine Many /hpf; Nitrite,Urine Negative (Negative); PH, Urine 6.5 (5.0-8.0); Protein,Urine 3+ (Negative); RBC,Urine 16 /hpf (0-5); Specific Gravity,Urine 1.041 (1.001-1.035); Squamous Epithelial Cell,Urine 15 /hpf (0-4); WBC,Urine 9 /hpf (0-5)
[2019-11-06 12:23] LABS: ALT 45 U/L (4-34); AST 53 U/L (14-36); African American GFR (CKD) >90 (>60 ml/min/1.73 sqM); Albumin 3.7 g/dL (3.5-5.0); Alkaline Phosphatase 169 U/L (38-126); Anion Gap 10 mmol/L; Blood Urea Nitrogen 10 mg/dL (7-17); Calcium 8.8 mg/dL (8.4-10.2); Carbon Dioxide 21 mmol/L (22-30); Chloride 101 mmol/L (98-107); Glucose 99 mg/dL (74-99); Non-African American GFR(CKD) >90 (>60 ml/min/1.73 sqM); Potassium 4.3 mmol/L (3.5-5.1); Sodium 132 mmol/L (137-145); Total Bilirubin 0.9 mg/dL (0.2-1.3); Total Protein 6.9 g/dL (6.3-8.2)
--- NOTE | 2019-11-06 12:35 | XR ---
EXAMINATION TYPE: XR chest 2V DATE OF EXAM: 11/06/2019 COMPARISON: NONE HISTORY: Chest pain TECHNIQUE: Frontal and lateral views of the chest are obtained. FINDINGS: Right lower lobe infiltrate compatible with pneumonia. Correlate clinically. No evidence for pneumothorax. No pleural effusion. The cardiac silhouette size is within normal limits. The osseous structures are grossly intact. IMPRESSION: 1. Right lower lobe infiltrate compatible with pneumonia. Correlate clinically.
[2019-11-06] MEDS ORDERED: NALOXONE 0.4 MG/ML 1 ML VIAL IV PRN (12:38)
[2019-11-06] MEDS ORDERED: SODIUM CHLORIDE 0.9% 1,000 ML IV ONE (12:42)
--- NOTE | 2019-11-06 12:46 | ED ---
SOB HPI - General Chief Complaint: Shortness of Breath Stated Complaint: sent from [facility] Time Seen by Provider: 11/06/19 11:36 Source: patient Mode of arrival: ambulatory Limitations: no limitations - History of Present Illness Initial Comments: 34-year-old female presenting today for chief complaint of shortness of breath cough fever. Patient states since Sunday she has had body aches she states her cough began a few days later. Patient states she has been congested she states she has significant "myalgias. Patient denies any neck stiffness denies any abdominal pain nausea vomiting diarrhea or rashes. Patient states she is test for Coumadin one day which returned negative. Patient denies any immune compresses just cancer splenectomy, chemotherapy or HIV. Patient denies chronic steroid use of type 1 DM. Patient states she has gotten increasing SOB and occasionally has a slight pain when coughing in the right side of chest. Pt went to urgent care where she was seen on Sunday and they took a CXR telling her to come to ER for fever, and a pneumonia. Denies hemoptysis leg swelling calf pain history DVT pulmonary embolism , denies or exogenous hormone use, denies recent surgeries. Patient has no additional complaints. Pt took tylenol at 8:30AM. Patient has no additional complaints upon arrival she appears fatigued but not in respiratory distress. - Related Data Home Medications Medication Instructions Recorded Confirmed Acetaminophen Tab [Tylenol Tab] 1,000 - 1,500 mg PO Q6HR PRN 11/06/19 11/06/19 Ibuprofen [Motrin Ib] 800 mg PO Q6H PRN 11/06/19 11/06/19 Allergies Allergy/AdvReac Type Severity Reaction Status Date / Time No Known Allergies Allergy Verified 11/06/19 13:24 Review of Systems ROS Statement: Those systems with pertinent positive or pertinent negative responses have been documented in the HPI. ROS Other: All systems not noted in ROS Statement are negative. Past Medical History Past Medical History: No Reported History Additional Past Medical History / Comment(s): gallstones History of Any Multi-Drug Resistant Organisms: None Reported Past Surgical History: Section, Cholecystectomy, Tubal Ligation Past Anesthesia/Blood Transfusion Reactions: No Reported Reaction Past Psychological History: Depression Smoking Status: Current some day smoker Past Alcohol Use History: Occasional Past Drug Use History: Marijuana - Past Family History Father Family Medical History: Thyroid Disorder General Exam - General Exam Comments Initial Comments: General: The patient is awake and alert, in no distress Eye: +3 mm pupils are equal, round and reactive to light, extra-ocular movements are intact. No nystagmus. There is normal conjunctiva bilaterally. No signs of icterus. No photophobia Ears, nose, mouth and throat: There are moist mucous membranes and no oral lesions. Oropharynx was not erythematous there is no tonsillar enlargement exudates or lesions. Uvula midline. No tenderness to palpation of the mastoid. No anterior cervical lymphadenopathy. Rhinorrhea, clear and bilateral nares. No tripoding, no drooling. Neck: The neck is supple, there is no tenderness or JVD. No nuchal rigidity negative Brudzinski and Kernig Cardiovascular: There is a regular rate and rhythm. No murmur, rub or gallop is appreciated. Respiratory: Respirations are non-labored, breath sounds are equal. Rihgt sided rales present in mid lung thayer. No wheezes, stridor, or rhonchi. No retractions or abdominal breathing. Gastrointestinal: Soft, non-distended, non-tender abdomen without masses or organomegaly noted. There is no rebound or guarding present. Bowel sounds are unremarkable. Musculoskeletal: Normal ROM, no tenderness. Strength 5/5. Sensation intact. Radial pulses equal bilaterally 2+. Neurological: A&O x 3. CN II-XII intact grossly, There are no obvious motor or sensory deficits. Coordination appears grossly intact. Speech appears normal, no muffling. Skin: Skin is warm and dry and no rashes or lesions are noted. No extremity edema Psychiatric: Cooperative Limitations: no limitations Course Vital Signs 11/06/19 11/06/19 11/06/19 11:29 14:17 14:53 Temperature 102.2 F H 103.1 F H Pulse Rate 127 H 123 H 118 H Respiratory 18 18 18 Rate Blood Pressure 147/76 104/73 99/78 O2 Sat by Pulse 97 94 L 95 Oximetry 11/06/19 11/06/19 15:24 18:49 Temperature 102.0 F H 99.1 F Pulse Rate 119 H Respiratory 20 Rate Blood Pressure 129/67 O2 Sat by Pulse 95 Oximetry Medical Decision Making - Medical Decision Making Leukocytosis. Prominent pneumonia, fevers. Patient has cough, body aches and URI symptoms which correlate clinically. Patient evaluated by attending. IV abx and fluids initiated in the ER. Patient agreeable to admission. Accepting physician Dr. Pillai evaluated patient in the ER. Agreedable to care plan. Dr Gutiérrez who also evaluated patient and was attending provider is agreeable to care plan/admission. - Lab Data Result diagrams: 11/06/19 11:47 11/06/19 11:47 Lab Results 11/06/19 11/06/19 11/06/19 Range/Units 11:47 11:47 11:47 WBC 19.7 H (3.8-10.6) k/uL RBC 4.82 (3.80-5.40) m/uL Hgb 14.8 (11.4-16.0) gm/dL Hct 45.0 (34.0-46.0) % MCV 93.3 (80.0-100.0) fL MCH 30.6 (25.0-35.0) pg MCHC 32.8 (31.0-37.0) g/dL RDW 12.3 (11.5-15.5) % Plt Count 260 (150-450) k/uL Neutrophils % 94 % Lymphocytes % 3 % Monocytes % 2 % Eosinophils % 1 % Basophils % 0 % Neutrophils # 18.4 H (1.3-7.7) k/uL Lymphocytes # 0.6 L (1.0-4.8) k/uL Monocytes # 0.3 (0-1.0) k/uL Eosinophils # 0.2 (0-0.7) k/uL Basophils # 0.1 (0-0.2) k/uL Sodium 132 L (137-145) mmol/L Potassium 4.3 (3.5-5.1) mmol/L Chloride 101 (98-107) mmol/L Carbon Dioxide 21 L (22-30) mmol/L Anion Gap 10 mmol/L BUN 10 (7-17) mg/dL Creatinine 0.63 (0.52-1.04) mg/dL Est GFR (CKD-EPI)AfAm >90 (>60 ml/min/1.73 sqM) Est GFR (CKD-EPI)NonAf >90 (>60 ml/min/1.73 sqM) Glucose 99 (74-99) mg/dL Plasma Lactic Acid Justino 1.7 (0.7-2.0) mmol/L Calcium 8.8 (8.4-10.2) mg/dL Magnesium (1.6-2.3) mg/dL Ferritin Total Bilirubin 0.9 (0.2-1.3) mg/dL AST 53 H (14-36) U/L ALT 45 H (4-34) U/L Alkaline Phosphatase 169 H (38-126) U/L Lactate Dehydrogenase (313-618) U/L Creatine Kinase (30-135) U/L C-Reactive Protein (<10.0) mg/L Total Protein 6.9 (6.3-8.2) g/dL Albumin 3.7 (3.5-5.0) g/dL Urine Color Urine Appearance (Clear) Urine pH (5.0-8.0) Ur Specific [place] (1.001-1.035) Urine Protein (Negative) Urine Glucose (UA) (Negative) Urine Ketones (Negative) Urine Blood (Negative) Urine Nitrite (Negative) Urine Bilirubin (Negative) Urine Urobilinogen (<2.0) mg/dL Ur Leukocyte Esterase (Negative) Urine RBC (0-5) /hpf Urine WBC (0-5) /hpf Ur Squamous Epith Cells (0-4) /hpf Urine Bacteria (None) /hpf Urine Mucus (None) /hpf Urine HCG, Qual (Not Detectd) Coronavirus (PCR) (Not Detected) Heterophile Antibody (Negative) 11/06/19 11/06/19 11/06/19 Range/Units 11:47 11:47 11:47 WBC (3.8-10.6) k/uL RBC (3.80-5.40) m/uL Hgb (11.4-16.0) gm/dL Hct (34.0-46.0) % MCV (80.0-100.0) fL MCH (25.0-35.0) pg MCHC (31.0-37.0) g/dL RDW (11.5-15.5) % Plt Count (150-450) k/uL Neutrophils % % Lymphocytes % % Monocytes % % Eosinophils % % Basophils % % Neutrophils # (1.3-7.7) k/uL Lymphocytes # (1.0-4.8) k/uL Monocytes # (0-1.0) k/uL Eosinophils # (0-0.7) k/uL Basophils # (0-0.2) k/uL Sodium (137-145) mmol/L Potassium (3.5-5.1) mmol/L Chloride (98-107) mmol/L Carbon Dioxide (22-30) mmol/L Anion Gap mmol/L BUN (7-17) mg/dL Creatinine (0.52-1.04) mg/dL Est GFR (CKD-EPI)AfAm (>60 ml/min/1.73 sqM) Est GFR (CKD-EPI)NonAf (>60 ml/min/1.73 sqM) Glucose (74-99) mg/dL Plasma Lactic Acid Justino (0.7-2.0) mmol/L Calcium (8.4-10.2) mg/dL Magnesium (1.6-2.3) mg/dL Ferritin Total Bilirubin (0.2-1.3) mg/dL AST (14-36) U/L ALT (4-34) U/L Alkaline Phosphatase (38-126) U/L Lactate Dehydrogenase (313-618) U/L Creatine Kinase (30-135) U/L C-Reactive Protein (<10.0) mg/L Total Protein (6.3-8.2) g/dL Albumin (3.5-5.0) g/dL Urine Color Dark Brown Urine Appearance Cloudy H (Clear) Urine pH 6.5 (5.0-8.0) Ur Specific [place] 1.041 H (1.001-1.035) Urine Protein 3+ H (Negative) Urine Glucose (UA) Negative (Negative) Urine Ketones Trace H (Negative) Urine Blood Moderate H (Negative) Urine Nitrite Negative (Negative) Urine Bilirubin 1+ H (Negative) Urine Urobilinogen 2.0 (<2.0) mg/dL Ur Leukocyte Esterase Trace H (Negative) Urine RBC 16 H (0-5) /hpf Urine WBC 9 H (0-5) /hpf Ur Squamous Epith Cells 15 H (0-4) /hpf Urine Bacteria Occasional H (None) /hpf Urine Mucus Many H (None) /hpf Urine HCG, Qual Not Detected (Not Detectd) Coronavirus (PCR) Not Detected (Not Detected) Heterophile Antibody (Negative) 11/06/19 11/06/19 11/06/19 Range/Units 11:47 11:47 11:58 WBC (3.8-10.6) k/uL RBC (3.80-5.40) m/uL Hgb (11.4-16.0) gm/dL Hct (34.0-46.0) % MCV (80.0-100.0) fL MCH (25.0-35.0) pg MCHC (31.0-37.0) g/dL RDW (11.5-15.5) % Plt Count (150-450) k/uL Neutrophils % % Lymphocytes % % Monocytes % % Eosinophils % % Basophils % % Neutrophils # (1.3-7.7) k/uL Lymphocytes # (1.0-4.8) k/uL Monocytes # (0-1.0) k/uL Eosinophils # (0-0.7) k/uL Basophils # (0-0.2) k/uL Sodium (137-145) mmol/L Potassium (3.5-5.1) mmol/L Chloride (98-107) mmol/L Carbon Dioxide (22-30) mmol/L Anion Gap mmol/L BUN (7-17) mg/dL Creatinine (0.52-1.04) mg/dL Est GFR (CKD-EPI)AfAm (>60 ml/min/1.73 sqM) Est GFR (CKD-EPI)NonAf (>60 ml/min/1.73 sqM) Glucose (74-99) mg/dL Plasma Lactic Acid Justino (0.7-2.0) mmol/L Calcium (8.4-10.2) mg/dL Magnesium 1.5 L (1.6-2.3) mg/dL Ferritin Cancelled Total Bilirubin (0.2-1.3) mg/dL AST (14-36) U/L ALT (4-34) U/L Alkaline Phosphatase (38-126) U/L Lactate Dehydrogenase 839 H (313-618) U/L Creatine Kinase 37 (30-135) U/L C-Reactive Protein 259.4 H (<10.0) mg/L Total Protein (6.3-8.2) g/dL Albumin (3.5-5.0) g/dL Urine Color Urine Appearance (Clear) Urine pH (5.0-8.0) Ur Specific [place] (1.001-1.035) Urine Protein (Negative) Urine Glucose (UA) (Negative) Urine Ketones (Negative) Urine Blood (Negative) Urine Nitrite (Negative) Urine Bilirubin (Negative) Urine Urobilinogen (<2.0) mg/dL Ur Leukocyte Esterase (Negative) Urine RBC (0-5) /hpf Urine WBC (0-5) /hpf Ur Squamous Epith Cells (0-4) /hpf Urine Bacteria (None) /hpf Urine Mucus (None) /hpf Urine HCG, Qual (Not Detectd) Coronavirus (PCR) (Not Detected) Heterophile Antibody Negative (Negative) Disposition Clinical Impression: Right lower lobe pneumonia, Fever, Dyspnea, Myalgia Disposition: ADMITTED IP TO THIS [facility] Condition: Stable Is patient prescribed a controlled substance at d/c from ED?: No Time of Disposition: 13:29 Decision to Admit Reason: Admit from EC Decision Date: 11/06/19 Decision Time: 13:30
[2019-11-06] MEDS: SODIUM CHLORIDE 0.9% 1,000 ML IV SCH ×2 (13:18→20:14)
[2019-11-06] MEDS ORDERED: AZITHROMYCIN 500 MG in SODIUM CHLORIDE 0.9% 250 ML IVPB STA (13:29)
[2019-11-06 13:53] LABS: Magnesium 1.5 mg/dL (1.6-2.3)
[2019-11-06 14:07] LABS: C Reactive Protein 259.4 mg/L (<10.0)
[2019-11-06] MEDS: ACETAMINOPHEN TAB 325 MG TAB PO PRN ×2 (14:48→20:13)
[2019-11-06 15:57] LABS: D-Dimer 2.07 mg/L FEU (<0.60); INR 0.9 (<1.2); Prothrombin Time 9.9 sec (9.0-12.0)
[2019-11-06] MEDS ORDERED: HYDROmorphone 0.5 MG/0.5 ML SYRINGE IVP PRN (19:17)
[2019-11-06] MEDS: ENOXAPARIN 40 MG/0.4 ML SYRINGE SQ SCH (20:13)
[2019-11-06] MEDS: FAMOTIDINE 20 MG TAB PO SCH (20:13)
[2019-11-06] MEDS: ZINC SULFATE 220 MG CAP PO SCH (20:13)
[2019-11-06] MEDS: ALBUTEROL HFA INHALER INHALATION SCH (21:03)
--- NOTE | 2019-11-06 21:59 | HP ---
HISTORY AND PHYSICAL DATE OF SERVICE: 11/06/2019 CHIEF COMPLAINT: Shortness of breath. HISTORY OF PRESENT ILLNESS: This 34-year-old woman with a past medical history of multiple medical problems including gallstones, cholecystectomy, history of depression, was not feeling well over the past couple days. The patient had shortness of breath and cough and fever since Sunday. The patient also had significant chest pain developed on the right lower part. The patient also felt congested. The patient has significant myalgias and aches and pains. The patient came to [facility] and was found to have right lower lobe pneumonia and the patient being admitted for further evaluation and treatment. Patient referred from [employer] also. 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 The white count was found to be 19.7, D- dimer is 2.07. The patient had multiple abnormalities and elevated AST, ALT, LDH, CRP. Antibody is negative. Possibility of COVID-19 is also being considered. There is no history of fever, rigors, chills at this time. PAST MEDICAL HISTORY: History of gallstones, history of cholecystectomy, history of depression, history of nicotine dependence. History of THC. MEDICATIONS: Home medications are Motrin 800 mg q.6 p.r.n., Tylenol p.r.n. ALLERGIES: None. FAMILY HISTORY: History of thyroid disorder in the family. SOCIAL HISTORY: History of smoking on a daily basis. REVIEW OF SYSTEMS: ENT: No diminished vision. No diminished hearing. CARDIOVASCULAR as mentioned earlier. RESPIRATORY: As mentioned earlier. GI: As mentioned earlier. : No dysuria. NERVOUS SYSTEM: No numbness or weakness. ALLERGY/IMMUNOLOGY: No asthma or hayfever. MUSCULOSKELETAL as mentioned earlier. HEMATOLOGY/ONCOLOGY: No history of anemia. ENDOCRINE: No history of diabetes mellitus or hypothyroidism. CONSTITUTIONAL: As mentioned earlier. DERMATOLOGY: Negative. RHEUMATOLOGY: Negative. PSYCHIATRIC: As mentioned earlier. PHYSICAL EXAMINATION: Alert and oriented times three. Pulse is 119. Blood pressure 120/66. Respiration 20. Temperature 102, pulse ox 95% on 2 L. HEENT: Conjunctivae normal. Oral mucosa moist. NECK is no jugular venous distention. No carotid bruit. No lymph node enlargement. CARDIOVASCULAR: S1, S2 muffled. RESPIRATORY: Breath sounds diminished in the bases. Bilateral scattered rhonchi and crackles. ABDOMEN: Soft, nontender. No mass palpable. LEGS: No edema. No swelling. NERVOUS SYSTEM: Higher functions as mentioned earlier. Moves all 4 limbs. No focal motor or sensory deficits. LYMPHATICS: No lymph nodes palpable in the neck, axillae or groin. SKIN: No ulcer, no ulcers and no bleeding. JOINTS: No active deforming arthropathy. LABS: WBC 19.2, hemoglobin 14.8. D-dimer is 2.7. Sodium 132. Other labs are noted. ASSESSMENT: 1. Acute right lower lobe pneumonia, rule out COVID-19, pneumonia. 2. Increased WBC. 3. Increased AST/ALT. 4. Increased alkaline phosphatase. 5. Increased LDH. 6. Increased C-reactive protein. 7. Increased D-dimer. 8. Proteinuria. 9. History of gallstones. 10.History of cholecystectomy. 11.History of depression. 12.History of nicotine dependence. 13.History of THC. 14.Obesity with body mass of 35. RECOMMENDATIONS AND DISCUSSION: This 34-year-old woman who presented with multiple complex medical issues, we will monitor the patient closely. Continue the current medications, management and symptomatic treatment. We will initiate broad-spectrum IV antibiotics. Consult Infectious Disease and Pulmonary. CT angio of the chest. Covid-19 has been requested. Otherwise, sputum cultures. Symptomatic treatment. Bronchodilators. Pain medication. Overall prognosis extremely guarded because of multiple complex medical conditions. Further recommendations to follow. Recommend the patient follow up with primary physician closely after discharge. The patient understands and agrees. See orders for details. MMODL / IJN: [id number] / MTDD
[2019-11-06 22:39] LABS: Amphetamine Screen,Urine Not Detected (NotDetected); Barbiturate Screen,Urine Not Detected (NotDetected); Benzodiazepines Screen,Urine Not Detected (NotDetected); Cocaine Screen,Urine Not Detected (NotDetected); Methadone Screen, Urine Not Detected (NotDetected); Opiate Screen,Urine Not Detected (NotDetected); Oxycodone Screen, Urine Not Detected (NotDetected); Phencyclidine Screen,Urine Not Detected (NotDetected); Tricyclic Antidepressant,Urine Not Detected (NotDetected); Urn Cannabinoid Scrn Detected (NotDetected)
--- NOTE | 2019-11-06 22:46 | CT ---
EXAMINATION TYPE: CT angio chest DATE OF EXAM: 11/06/2019 COMPARISON: HISTORY: Cough, shortness of breath and fever. CT DLP: 550.7 mGycm Automated exposure control for dose reduction was used. CONTRAST: Performed with IV Contrast, patient injected with 79ml mL of Isovue 370. There are 3-D post processed images. There is airspace consolidation in the right lower lobe. Heart size is normal. There is no pericardia l effusion. There is no mediastinal adenopathy. There is 1 cm right bronchial lymph nodes. There is n o definite pleural effusion. Left lung is fairly clear. Thoracic aorta appears normal. There is no aneurysm or dissection. There is normal contrast opacification of the pulmonary arteries. There are no filling defects. The thoracic spine is intact. Ribs appear intact. Sternum is intact. IMPRESSION: No evidence of pulmonary embolism. Large area of right lower lobe pneumonia. Mild paratracheal and right bronchial lymphadenopathy.
[2019-11-07] MEDS: HYDROcodone/APAP 5-325MG 1 EACH TAB PO PRN ×3 (00:21→18:17)
[2019-11-07] MEDS: ACETAMINOPHEN TAB 325 MG TAB PO PRN ×3 (01:28→13:01)
[2019-11-07 07:43] LABS: Basophils # (A) 0.1 k/uL (0-0.2); Basophils % (A) 1 %; Eosinophils # (A) 0.1 k/uL (0-0.7); Eosinophils % (A) 1 %; HCT 36.7 % (34.0-46.0); HGB 12.1 gm/dL (11.4-16.0); Lymphocytes # (A) 0.9 k/uL (1.0-4.8); Lymphocytes % (A) 8 %; MCH 30.8 pg (25.0-35.0); MCHC 32.9 g/dL (31.0-37.0); MCV 93.7 fL (80.0-100.0); Mean Platelet Volume 7.3; Monocytes # (A) 0.3 k/uL (0-1.0); Monocytes % (A) 3 %; Neutrophils # (A) 9.8 k/uL (1.3-7.7); Neutrophils % (A) 87 %; Platelet Count 223 k/uL (150-450); RBC 3.92 m/uL (3.80-5.40); RDW 12.2 % (11.5-15.5); WBC 11.3 k/uL (3.8-10.6)
[2019-11-07] MEDS: ENOXAPARIN 40 MG/0.4 ML SYRINGE SQ SCH (08:01)
[2019-11-07] MEDS: FAMOTIDINE 20 MG TAB PO SCH ×2 (08:01→21:48)
[2019-11-07] MEDS: ZINC SULFATE 220 MG CAP PO SCH ×2 (08:01→23:28)
[2019-11-07] MEDS ORDERED: AZITHROMYCIN 500 MG in SODIUM CHLORIDE 0.9% 250 ML IVPB SCH (09:00)
[2019-11-07] MEDS: ALBUTEROL HFA INHALER INHALATION SCH ×4 (10:35→20:40)
[2019-11-07] MEDS ORDERED: guaiFENesin-DM 100-10MG/5ML 10 ML CUP PO PRN (10:52)
[2019-11-07] MEDS: SODIUM CHLORIDE 0.9% 1,000 ML IV SCH ×2 (11:12→21:50)
[2019-11-07 11:29] LABS: African American GFR (CKD) 137.8 (60.0-200.0); Albumin/Globulin Ratio 1.58 (1.60-3.17); Anion Gap 7.4 mmol/L (4.00-12.00); BUN/Creat Ratio 16.67 Ratio (12.00-20.00); C Reactive Protein 25.4 mg/dL (0.0-0.8); Calcium 7.4 mg/dL (8.7-10.3); Carbon Dioxide 22.6 mmol/L (21.6-31.8); Globulin 1.9 g/dL (1.6-3.3); Non-African American GFR(CKD) 118.9 (60.0-200.0); Total Bilirubin 0.7 mg/dL (0.3-1.2); Total Protein 4.9 g/dL (6.2-8.2)
--- NOTE | 2019-11-07 13:43 | P.CNPUL ---
History of Present Illness Consult date: 11/07/19 Reason for consult: dyspnea, cough, chest pain, hypoxemia, pneumonia, abnormal CXR/CT Chief complaint: Fever, body aches, shortness of breath, cough History of present illness: This is a 34-year-old white female patient with no significant medical history, a smoker, patient smokes a half a pack a day for last 10 years, who presented to the hospital on 11/06/2019 at 11:30 in the morning and the patient was sent in from the [facility] urgent [facility] for evaluation of fever, shortness of breath, cough, diffuse body aches. Onset of symptoms was on Sunday morning, with a fever of up to 102 degrees Fahrenheit, diffuse body aches. 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 However patient recalls going to [id number] last week, and she stated people were not wearing masks [employer], and apparently an employee there was complaining of body aches. By her symptoms worsened, she developed a cough, and shortness of breath. She continued to be febrile. She started to experience chest pain in the right lower part of the chest. She feels congested. She went to be seen at the urgent care clinic at the [facility] she was tested for Covid 19 and the test was negative. However the chest x-ray showed right lower lobe pneumonia, and patient continued to be febrile and she was sent into the emergency department for evaluation and further treatment. Chest x-ray in the emergency department showed a right lower lobe infiltrate compatible with pneumonia. In last 24 hours T-max was 103.1F, patient has been continuously febrile for the most part in the last 24 hours, she is on 2 L of oxygen and a pulse ox of 93%, she is dyspneic, she is tachycardic, she was started on azithromycin and Rocephin for possibility of a right lower lobe pneumonia, her labs were reviewed showing leukocytosis, with white blood cell count of 19.7, hemoglobin of 14.8, lymph count of 0.6, d-dimer is elevated to 0.07, sodium is 132, potassium is 4.3, CO2 is 21, BUN is 10, creatinine 0.63. Urinalysis showed a cloudy urine, with moderate blood, trace leuks, elevated bilirubin. LFTs were elevated with AST of 53, ALT of 45, and alkaline phosphatase of 169, LDH was 839, CRP was 259, pro calcitonin came back elevated to 0.68, omalley virus PCR was repeated here and was not detected, influenza screen was negative, heterophile antibody was negative. Patient is producing some yellow colored sputum at times, denies any hemoptysis. Review of Systems All systems: negative Constitutional: Reports fever, Reports malaise, Denies chills Eyes: denies blurred vision, denies pain Ears, nose, mouth and throat: Denies headache, Denies sore throat Cardiovascular: Denies chest pain, Denies shortness of breath Respiratory: Reports cough, Reports dyspnea, Reports pain on inspiration Gastrointestinal: Denies abdominal pain, Denies diarrhea, Denies nausea, Denies vomiting Genitourinary: Denies dysuria, Denies hematuria Musculoskeletal: Reports myalgias Integumentary: Denies pruritus, Denies rash Neurological: Denies numbness, Denies weakness Psychiatric: Denies anxiety, Denies depression Endocrine: Denies fatigue, Denies weight change Past Medical History Past Medical History: No Reported History Additional Past Medical History / Comment(s): gallstones History of Any Multi-Drug Resistant Organisms: None Reported Past Surgical History: Section, Cholecystectomy, Tubal Ligation Past Anesthesia/Blood Transfusion Reactions: No Reported Reaction Past Psychological History: Depression Smoking Status: Current some day smoker Past Alcohol Use History: Occasional Past Drug Use History: Marijuana - Past Family History Father Family Medical History: Thyroid Disorder Medications and Allergies Home Medications Medication Instructions Recorded Confirmed Type Acetaminophen Tab [Tylenol Tab] 1,000 - 1,500 mg PO Q6HR PRN 11/06/19 11/06/19 History Ibuprofen [Motrin Ib] 800 mg PO Q6H PRN 11/06/19 11/06/19 History Allergies Allergy/AdvReac Type Severity Reaction Status Date / Time No Known Allergies Allergy Verified 11/06/19 13:24 Physical Exam Vitals: Vital Signs Temp Pulse Pulse Resp BP BP Pulse Ox 11/07/19 12:59 102.8 F H 118 H 16 118/76 98 11/07/19 07:00 103.1 F H 119 H 20 111/56 93 L 11/07/19 02:48 99.3 F 11/07/19 01:25 101.6 F H 96 18 111/74 96 11/06/19 19:50 102 F H 123 H 20 121/80 97 11/06/19 18:49 99.1 F 119 H 20 129/67 95 11/06/19 15:24 102.0 F H 11/06/19 14:53 118 H 18 99/78 95 11/06/19 14:17 103.1 F H 123 H 18 104/73 94 L Intake and Output 11/06/19 11/07/19 11/07/19 22:59 06:59 14:59 Other: Voiding Method Toilet Toilet # Voids 1 1 Weight 104.326 kg GENERAL EXAM: Alert, very pleasant, 34-year-old white female, on 2 L of oxygen the pulse ox 93-90% comfortable in no apparent distress. HEAD: Normocephalic/atraumatic. EYES: Normal reaction of pupils, equal size. Conjunctiva pink, sclera white. NOSE: Clear with pink turbinates. THROAT: No erythema or exudates. NECK: No masses, no JVD, no thyroid enlargement, no adenopathy. CHEST: No chest wall deformity. Symmetrical expansion. LUNGS: Equal air entry with no crackles, wheeze, rhonchi or dullness. CVS: Regular rate and rhythm, normal S1 and S2, no gallops, no murmurs, no rubs ABDOMEN: Soft, nontender. No hepatosplenomegaly, normal bowel sounds, no guarding or rigidity. EXTREMITIES: No clubbing, no edema, no cyanosis, 2+ pulses and upper and lower extremities. MUSCULOSKELETAL: Muscle strength and tone normal. SPINE: No scoliosis or deformity SKIN: No rashes CENTRAL NERVOUS SYSTEM: Alert and oriented -3. No focal deficits, tone is normal in all 4 extremities. PSYCHIATRIC: Alert and oriented -3. Appropriate affect. Intact judgment and insight. Results - Laboratory Findings CBC and BMP: 11/07/19 07:09 11/07/19 07:09 PT/INR, D-dimer PT 9.9 sec (9.0-12.0) 11/06/19 14:33 INR 0.9 (<1.2) 11/06/19 14:33 D-Dimer 2.07 mg/L FEU (<0.60) H 11/06/19 14:33 Abnormal lab findings: Abnormal Labs 11/06/19 11/06/19 11/06/19 11:47 11:47 11:47 WBC 19.7 H Neutrophils # 18.4 H Lymphocytes # 0.6 L D-Dimer Sodium 132 L Carbon Dioxide 21 L Calcium Magnesium Ferritin AST 53 H ALT 45 H Alkaline Phosphatase 169 H Lactate Dehydrogenase C-Reactive Protein Total Protein Albumin Albumin/Globulin Ratio Procalcitonin Urine Appearance Cloudy H Ur Specific [place]ushing 1.041 H Urine Protein 3+ H Urine Ketones Trace H Urine Blood Moderate H Urine Bilirubin 1+ H Ur Leukocyte Esterase Trace H Urine RBC 16 H Urine WBC 9 H Ur Squamous Epith Cells 15 H Urine Bacteria Occasional H Urine Mucus Many H U Marijuana (THC) Screen 11/06/19 11/06/19 11/06/19 11:47 14:33 14:33 WBC Neutrophils # Lymphocytes # D-Dimer 2.07 H Sodium Carbon Dioxide Calcium Magnesium 1.5 L Ferritin AST ALT Alkaline Phosphatase Lactate Dehydrogenase 839 H C-Reactive Protein 259.4 H Total Protein Albumin Albumin/Globulin Ratio Procalcitonin 0.68 H Urine Appearance Ur Specific [place] Urine Protein Urine Ketones Urine Blood Urine Bilirubin Ur Leukocyte Esterase Urine RBC Urine WBC Ur Squamous Epith Cells Urine Bacteria Urine Mucus U Marijuana (THC) Screen 11/06/19 11/06/19 11/07/19 14:35 21:50 07:09 WBC 11.3 H Neutrophils # 9.8 H Lymphocytes # 0.9 L D-Dimer Sodium Carbon Dioxide Calcium Magnesium Ferritin 355.7 H AST ALT Alkaline Phosphatase Lactate Dehydrogenase C-Reactive Protein Total Protein Albumin Albumin/Globulin Ratio Procalcitonin Urine Appearance Ur Specific [place] Urine Protein Urine Ketones Urine Blood Urine Bilirubin Ur Leukocyte Esterase Urine RBC Urine WBC Ur Squamous Epith Cells Urine Bacteria Urine Mucus U Marijuana (THC) Screen Detected H 11/07/19 07:09 WBC Neutrophils # Lymphocytes # D-Dimer Sodium Carbon Dioxide Calcium 7.4 L Magnesium Ferritin AST 36 H ALT Alkaline Phosphatase Lactate Dehydrogenase C-Reactive Protein 25.4 H Total Protein 4.9 L Albumin 3.00 L Albumin/Globulin Ratio 1.58 L Procalcitonin Urine Appearance Ur Specific [place] Urine Protein Urine Ketones Urine Blood Urine Bilirubin Ur Leukocyte Esterase Urine RBC Urine WBC Ur Squamous Epith Cells Urine Bacteria Urine Mucus U Marijuana (THC) Screen - Diagnostic Findings Chest x-ray: report reviewed, image reviewed CT scan - chest: report reviewed, image reviewed Assessment and Plan Plan: Assessment: #1. Acute hypoxic rest or a failure related to possibility of community acquired pneumonia in the right lower lobe, COVID 19 PCR was negative 2 at the [facility], and here at [facility], inflammatory markers are elevated, possibility of COVID 19 still being considered. Influenza ruled out, heterophile antibody was negative #2. Sepsis related to community-acquired pneumonia #3. Fever, diffuse body aches, elevated inflammatory markers, possibility of Covid 19 still being considered #4. Elevated liver enzymes related to sepsis #5. History of smoking, patient carries a history of 10 years of smoking half a pack a day #6. History of depression #7. History of gallstones #8. History of THC #9. Elevated d-dimer, no evidence of pulmonary embolism on CT chest Plan: Continue with azithromycin and Rocephin, will and Decadron, will add a rescue inhaler, consider Remdesivir treatments for 5 days, continue with the vitamin C and zinc supplementation, d-dimer was elevated, continue with prophylactic dose of Lovenox. Follow-up inflammatory markers are coming down, liver enzymes are improving, right-sided chest pain has improved, white blood cell count has improved although patient remains febrile, she is feeling somewhat better on today's exam, and tinea current antibiotic coverage. Continue isolation precautions. We'll follow I performed a history & physical examination of the patient and discussed their management with my nurse practitioner, Alla Cruz. I reviewed the nurse practitioner's note and agree with the documented findings and plan of care. Lung sounds are positive for diffuse wheezes throughout the lung thayer. The findings and the impression was discussed with the patient. I attest to the documentation by the nurse practitioner. Time with Patient: Greater than 30
[2019-11-07] MEDS: dexAMETHasone 4 MG TAB PO SCH (14:48)
[2019-11-07] MEDS ORDERED: IBUPROFEN 200 MG TAB PO PRN (15:50)
--- NOTE | 2019-11-07 16:16 | CDI ---
Documentation Clarification Form Date: 11/07/2019 03:29:00 PM From: Vandana Ballard RN, CCDS Admit Date: 11/06/2019 01:02:00 PM Patient Name: Muna Rodriguez Visit Number: [id number] Discharge Date: ATTENTION: The Clinical Documentation Specialists (CDI) and [facility] Coding Staff appreciate your assistance in clarifying documentation. Please respond to the clarification below the line at the bottom and electronically sign. The CDI & [facility] Coding staff will review the response and follow-up if needed. Please note: Queries are made part of the Legal Health Record. If you have any questions, please contact the author of this message via ITS. Dr. Haley Pillai Sepsis is documented in the pulmonary consult on 11/06. Please render your opinion if sepsis is ruled in or out and specify disease process. History/Risk Factors: Current smoker Clinical Indicators: 34-year-old female present to D on 11/05 with complaints of dyspnea, cough, chest pain, Hypoxemia, fever, body aches. 10 WBC 19.7 Neutrophils 18.4, Ferritin 355.7, AST 53, ALT 45, Alkaline Phosphatase 169, LDH 839, C-Reactive Protein 259.4, Procalcitonin 0.68 Coronavirus Not detected 11/05 Lactic acid: 1.7 11/05 Blood cultures:: Pending 11/05 Urine culture: Pending 11/05 Vitals signs on admission: @11:29 147/76 127 18 102.2 97 % RA 11/06 Pulmonary consult: "Sepsis related to community-acquired pneumonia". Treatment: Zithromax 500 mg po daily, Rocephin 1 gm iv q 24 hrs Ventolin Inhaler 2 puff qid .9 NS iv @ 50 mls/hr Zinc Sulfate 220 mg po bid Tylenol tab 650 mg po q 4hrs prn In your professional opinion, please clarify if these findings signify one of the following conditions, whether the condition is POA, and cause, if known: Condition Sepsis ruled out Sepsis ruled in POA (Specify infection source) Other, please specify Unable to determine Identify the (suspected) organism Link or clarify if there is associated (due to/with): Organ failure Shock SIRS Criteria (2 or more of the following may indicate SIRS): -Temperature < 96.8F (36C) or > 101.0F (38.3C) -Heart Rate > 90 bpm -Respiratory Rate > 20 breaths/min or PaCO2 < 32 mmHg -White Blood Cell Count > 12,000 or < 4,000 cells/mm3 or > 10% bands -Lactate >2.0 mmol/L (>4.0 is equivalent to septic shock) (Last Revision: May 2017) possible sepsis MTDD
--- NOTE | 2019-11-07 17:29 | PN ---
PROGRESS NOTE DATE OF SERVICE: 11/07/2019 This 34-year-old woman who was admitted with acute right lower lobe pneumonia, is being closely monitored. 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 So, because of that information, we are ordering Legionella testing at this time. Covid-19 testing is pending at this time. Patient is complaining of fever, cough and chest pains at this time. The chest CTA showed no evidence of any pulmonary embolism but pneumonia and ground-glass opacity was also noted. The patient admitted for further evaluation and treatment. Past medical history reviewed. REVIEW OF SYSTEMS: CARDIOVASCULAR SYSTEM: No angina or palpitations. RESPIRATION: As mentioned earlier. GI: As mentioned earlier. : No dysuria. NERVOUS SYSTEM: No numbness or weakness. CURRENT MEDICATIONS: Reviewed and include: 1. Tylenol p.r.n. 2. [place] 5 mg. 3. Zithromax. 4. Rocephin. 5. Lovenox. 6. Pepcid. 7. Dilaudid. 8. Narcan. PHYSICAL EXAM: Patient is alert and oriented times three. Pulse 118, blood pressure 118/76. Respirations 16. Temperature 102.8, pulse ox 98% on 2 L. HEENT: Conjunctivae normal. NECK: No JVD. CARDIOVASCULAR: S1, S2. RESPIRATORY: Breath sounds diminished in the bases. Bilateral scattered rhonchi and crackles. ABDOMEN: Soft, nontender. LEGS are no edema. No swelling. NERVOUS SYSTEM: No focal deficits. LABS: WBC 7.3, and CMP noted. C-reactive protein is 24.4. Procalcitonin 0.68. THC negative. COVID-19 is negative. ASSESSMENT: 1. Acute right lower lobe pneumonia. Covid-19 negative. 2. Rule out Legionella pneumonia. 3. Increased WBC. 4. Increased AST/ALT. 5. Increase alkaline phosphatase. 6. Increased LDH. 7. Increased C-reactive protein. 8. Increased D-dimer. 9. Proteinuria. 10.History of gallstones. 11.History of cholecystectomy. 12.History of depression. 13.History of nicotine dependence. 14.History of THC. 15.Obesity with body mass index of 35. RECOMMENDATIONS AND DISCUSSION: Recommend to continue current medications, management and symptomatic treatment. Continue the bronchodilators. Otherwise Legionella testing, testing. Covid-19 is negative at this time. Continue the rest of the medications. Dexamethasone was empirically given. Guarded prognosis because of multiple complex medical issues. Further recommendations to follow. We will cut down the IV fluids to 50 mL/hour. MMODL / IJN: [id number] / MTDD
[2019-11-07] MEDS: BENZONATATE 100 MG CAP PO SCH ×2 (21:47→23:28)
--- NOTE | 2019-11-08 00:25 | P.CONS ---
History of Present Illness - Reason for Consult Consult date: 11/07/19 Sepsis Requesting physician: Haley Pillai - Chief Complaint Fever cough x 3 days - History of Present Illness Patient is 34-year-old female presenting to the ER at [facility] yesterday for evaluation of fever and chills and cough with symptoms going on for 3 days before presentation to the hospital patient initial symptoms started with a sore throat denies body aches not feeling well subsequently was her having a cough which has been moderate intensity is mostly dry in nature unable to bring up any sputum with associated shortness of breath and some nausea but no vomiting and started having some diarrhea with these symptoms the patient presented to the ER on arrival to the ER the patient did have a fever of 103F the patient was tachycardic and did have elevated white count 19,000 patient did have a chest x-ray with evidence of right lower lobe pneumonia that has been confirmed on a CT angiogram of the chest was negative for PE patient has been started on Rocephin and Zithromax infection disease was consulted for further management of antibiotic therapy influenza testing was negative , omalley PCR is pending Review of Systems Positive point has been mentioned in the HPI rest of the systems are negative Past Medical History Past Medical History: No Reported History Additional Past Medical History / Comment(s): gallstones History of Any Multi-Drug Resistant Organisms: None Reported Past Surgical History: Section, Cholecystectomy, Tubal Ligation Past Anesthesia/Blood Transfusion Reactions: No Reported Reaction Past Psychological History: Depression Smoking Status: Current some day smoker Past Alcohol Use History: Occasional Past Drug Use History: Marijuana - Past Family History Father Family Medical History: Thyroid Disorder Medications and Allergies Home Medications Medication Instructions Recorded Confirmed Type Acetaminophen Tab [Tylenol Tab] 1,000 - 1,500 mg PO Q6HR PRN 11/06/19 11/06/19 History Ibuprofen [Motrin Ib] 800 mg PO Q6H PRN 11/06/19 11/06/19 History Allergies Allergy/AdvReac Type Severity Reaction Status Date / Time No Known Allergies Allergy Verified 11/06/19 13:24 Physical Exam Vitals: Vital Signs Temp Pulse Resp BP Pulse Ox 11/07/19 16:30 101 F H 11/07/19 14:43 102.9 F H 122 H 18 129/74 96 11/07/19 12:59 102.8 F H 118 H 16 118/76 98 11/07/19 07:00 103.1 F H 119 H 20 111/56 93 L 11/07/19 02:48 99.3 F 11/07/19 01:25 101.6 F H 96 18 111/74 96 Intake and Output 11/07/19 11/07/19 11/07/19 06:59 14:59 22:59 Other: Voiding Method Toilet # Voids 1 3 GENERAL DESCRIPTION: Middle-aged female lying in bed, no distress. No tachypnea or accessory muscle of respiration use. HEENT: Shows Pallor , no scleral icterus. Oral mucous membrane is dry. No pharyngeal erythema or thrush NECK: Trachea central, no thyromegaly. LUNGS: Unlabored breathing. Decreased breath sound at the Base. No wheeze or crackle. HEART: S1, S2, regular rate and rhythm. No loud murmur ABDOMEN: Soft, no tenderness , guarding or rigidity, no organomegaly EXTREMITIES: No edema of feet. SKIN: No rash, no masses palpable. NEUROLOGICAL: The patient is awake, alert, oriented x3, mood and affect normal. Results CBC & Chem 7: 11/07/19 07:09 11/07/19 07:09 Labs: Abnormal Lab Results - Last 24 Hours (Table) 11/06/19 11/06/19 11/06/19 Range/Units 14:33 14:35 21:50 WBC (3.8-10.6) k/uL Neutrophils # (1.3-7.7) k/uL Lymphocytes # (1.0-4.8) k/uL Calcium (8.7-10.3) mg/dL Ferritin 355.7 H (10.0-291.0) ng/mL AST (13-35) U/L C-Reactive Protein (0.0-0.8) mg/dL Total Protein (6.2-8.2) g/dL Albumin (3.80-4.90) g/dL Albumin/Globulin Ratio (1.60-3.17) g/dL Procalcitonin 0.68 H (0.02-0.09) ng/mL U Marijuana (THC) Screen Detected H (NotDetected) 11/07/19 11/07/19 Range/Units 07:09 07:09 WBC 11.3 H (3.8-10.6) k/uL Neutrophils # 9.8 H (1.3-7.7) k/uL Lymphocytes # 0.9 L (1.0-4.8) k/uL Calcium 7.4 L (8.7-10.3) mg/dL Ferritin (10.0-291.0) ng/mL AST 36 H (13-35) U/L C-Reactive Protein 25.4 H (0.0-0.8) mg/dL Total Protein 4.9 L (6.2-8.2) g/dL Albumin 3.00 L (3.80-4.90) g/dL Albumin/Globulin Ratio 1.58 L (1.60-3.17) g/dL Procalcitonin (0.02-0.09) ng/mL U Marijuana (THC) Screen (NotDetected) Microbiology - Last 24 Hours (Table) 11/07/19 11:30 Sputum Culture - Preliminary Sputum 11/06/19 11:47 Blood Culture - Preliminary Blood No Growth after 24 hours 11/06/19 21:50 Urine Culture - Preliminary Urine,Voided Assessment and Plan Assessment: 1- patient presented to hospital with sepsis in this patient who did a fever da candice that elevated white count source is right lower lobe pneumonia, likely community acquired with a question of typical bacterial versus atypical pathogen such as Legionella 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 The other patient was hospitalized for have severe Legionella pneumonia (1) Sepsis Current Visit: Yes Status: Acute Code(s): A41.9 - SEPSIS, UNSPECIFIED ORGANISM SNOMED Code(s): 30239970 (2) Right lower lobe pneumonia Current Visit: Yes Status: Acute Code(s): J18.9 - PNEUMONIA, UNSPECIFIED ORGANISM SNOMED Code(s): 270664787 Plan: 1- we will request sputum for Gram stain and culture 2- await urine for Legionella antigen 3- Rocephin 1 g daily and Zithromax to continue We will follow on clinical condition and cultures to further adjust medication if needed Thank you for this consultation will follow this patient with you Time with Patient: Greater than 30
[2019-11-08] MEDS: HYDROcodone/APAP 5-325MG 1 EACH TAB PO PRN ×2 (03:34→15:15)
[2019-11-08 07:02] LABS: Basophils % (A) 0 %; Eosinophils % (A) 0 %; HCT 39.5 % (34.0-46.0); HGB 12.6 gm/dL (11.4-16.0); Lymphocytes % (A) 8 %; MCH 30.3 pg (25.0-35.0); MCHC 31.8 g/dL (31.0-37.0); MCV 95.2 fL (80.0-100.0); Mean Platelet Volume 7.7; Monocytes # (A) 0.5 k/uL (0-1.0); Monocytes % (A) 4 %; Neutrophils # (A) 10.3 k/uL (1.3-7.7); Neutrophils % (A) 86 %; Platelet Count 279 k/uL (150-450); RBC 4.15 m/uL (3.80-5.40); RDW 12.4 % (11.5-15.5)
[2019-11-08] MEDS: ENOXAPARIN 40 MG/0.4 ML SYRINGE SQ SCH (08:19)
[2019-11-08] MEDS: BENZONATATE 100 MG CAP PO SCH ×3 (08:19→21:16)
[2019-11-08] MEDS: FAMOTIDINE 20 MG TAB PO SCH ×2 (08:19→21:17)
[2019-11-08] MEDS: AZITHROMYCIN 500 MG TAB PO SCH (08:20)
[2019-11-08] MEDS: ZINC SULFATE 220 MG CAP PO SCH ×2 (08:20→21:16)
[2019-11-08] MEDS: dexAMETHasone 4 MG TAB PO SCH (08:20)
[2019-11-08 10:01] LABS: African American GFR (CKD) 137.8 (60.0-200.0); Albumin 3.4 g/dL (3.80-4.90); Albumin/Globulin Ratio 1.42 (1.60-3.17); Anion Gap 8.5 mmol/L (4.00-12.00); BUN/Creat Ratio 18.33 Ratio (12.00-20.00); Calcium 8.1 mg/dL (8.7-10.3); Carbon Dioxide 23.5 mmol/L (21.6-31.8); Globulin 2.4 g/dL (1.6-3.3); Non-African American GFR(CKD) 118.9 (60.0-200.0); Potassium 4.2 mmol/L (3.5-5.5); Total Bilirubin 0.4 mg/dL (0.3-1.2); Total Protein 5.8 g/dL (6.2-8.2)
[2019-11-08] MEDS: ALBUTEROL HFA INHALER INHALATION SCH ×4 (10:34→21:12)
--- NOTE | 2019-11-08 14:32 | P.PN ---
Subjective Progress Note Date: 11/08/19 Principal diagnosis: Community-acquired right lower lobe pneumonia This is a 34-year-old white female patient with no significant medical history, a smoker, patient smokes a half a pack a day for last 10 years, who presented to the hospital on 11/06/2019 at 11:30 in the morning and the patient was sent in from the [facility] urgent care clinic for evaluation of fever, shortness of breath, cough, diffuse body aches. Onset of symptoms was on Sunday morning, with a fever of up to 102 degrees Fahrenheit, diffuse body aches. 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 However patient recalls going to [employer] last week, and she stated people were not wearing masks [employer], and apparently an employee there was complaining of body aches. By her symptoms worsened, she developed a cough, and shortness of breath. She continued to be febrile. She started to experience chest pain in the right lower part of the chest. She feels congested. She went to be seen at the urgent care clinic at the [facility] she was tested for Cov id 19 and the test was negative. However the chest x-ray showed right lower lobe pneumonia, and patient continued to be febrile and she was sent into the emergency department for evaluation and further treatment. Chest x-ray in the emergency department showed a right lower lobe infiltrate compatible with pneumonia. In last 24 hours T-max was 103.1F, patient has been continuously febrile for the most part in the last 24 hours, she is on 2 L of oxygen and a pulse ox of 93%, she is dyspneic, she is tachycardic, she was started on azithromycin and Rocephin for possibility of a right lower lobe pneumonia, her labs were reviewed showing leukocytosis, with white blood cell count of 19.7, hemoglobin of 14.8, lymph count of 0.6, d-dimer is elevated to 0.07, sodium is 132, potassium is 4.3, CO2 is 21, BUN is 10, creatinine 0.63. Urinalysis showed a cloudy urine, with moderate blood, trace leuks, elevated bilirubin. LFTs were elevated with AST of 53, ALT of 45, and alkaline phosphatase of 169, LDH was 839, CRP was 259, pro calcitonin came back elevated to 0.68, omalley virus PCR was repeated here and was not detected, influenza screen was negative, heterophile antibody was negative. Patient is producing some yellow colored sputum at times, denies any hemoptysis. The patient is seen today 09/08/2019 in follow-up on the regular medical floor. She is currently resting comfortably in bed. She states she is feeling quite a bit better today compared to yesterday. He is maintaining good O2 saturation in the mid 90s on a room air. She's been afebrile. Hemodynamically stable. Blood culture reveals no growth to date. Urine culture reveals no growth. Sputum culture pending. White count 12.0. Hemoglobin 12.6. Sodium 135. Potassium 4.2. Creatinine 0.6. She remains on ceftriaxone and azithromycin. Tessalon Perles for her cough. Lovenox for DVT prophylaxis. Objective - Vital Signs Vital signs: Vital Signs Temp 97.8 F 11/08/19 07:48 Pulse 75 11/08/19 07:48 Resp 17 11/08/19 07:48 BP 122/85 11/08/19 07:48 Pulse Ox 98 11/08/19 07:48 Intake & Output 11/07/19 11/08/19 11/08/19 18:59 06:59 18:59 Other: Voiding Method Toilet Toilet # Voids 3 1 - Exam GENERAL EXAM: Alert, very pleasant, 34-year-old female patient, on room air, comfortable in no apparent distress. HEAD: Normocephalic/atraumatic. EYES: Normal reaction of pupils, equal size. Conjunctiva pink, sclera white. NOSE: Clear with pink turbinates. THROAT: No erythema or exudates. NECK: No masses, no JVD, no thyroid enlargement, no adenopathy. CHEST: No chest wall deformity. Symmetrical expansion. LUNGS: Equal air entry with scattered rhonchi more so on the right lung. CVS: Regular rate and rhythm, normal S1 and S2, no gallops, no murmurs, no rubs ABDOMEN: Soft, nontender. No hepatosplenomegaly, normal bowel sounds, no guarding or rigidity. EXTREMITIES: No clubbing, no edema, no cyanosis, 2+ pulses and upper and lower extremities. MUSCULOSKELETAL: Muscle strength and tone normal. SPINE: No scoliosis or deformity SKIN: No rashes CENTRAL NERVOUS SYSTEM: No focal deficits, tone is normal in all 4 extremities. PSYCHIATRIC: Alert and oriented -3. Appropriate affect. Intact judgment and insight. - Labs CBC & Chem 7: 11/08/19 06:40 11/08/19 06:40 Labs: Abnormal Lab Results - Last 24 Hours (Table) 11/08/19 11/08/19 Range/Units 06:40 06:40 WBC 12.0 H (3.8-10.6) k/uL Neutrophils # 10.3 H (1.3-7.7) k/uL Glucose 159 H (70-110) mg/dL Calcium 8.1 L (8.7-10.3) mg/dL AST 56 H (13-35) U/L Alkaline Phosphatase 145 H (41-126) U/L Lactate Dehydrogenase 507 H (120-246) U/L C-Reactive Protein 27.0 H (0.0-0.8) mg/dL Total Protein 5.8 L (6.2-8.2) g/dL Albumin 3.40 L (3.80-4.90) g/dL Albumin/Globulin Ratio 1.42 L (1.60-3.17) g/dL Microbiology - Last 24 Hours (Table) 11/06/19 11:47 Blood Culture - Preliminary Blood No Growth after 48 hours 11/06/19 21:50 Urine Culture - Final Urine,Voided 11/07/19 11:30 Gram Stain - Preliminary Sputum Sputum Culture - Preliminary Assessment and Plan Assessment: 1 Acute hypoxic respiratory failure related to community acquired pneumonia in the right lower lobe, COVID 19 PCR was negative 2 at the [facility] urgent care clinic, and here at [facility], inflammatory markers are elevated, possibility of COVID 19 still being considered. Influenza ruled out, heterophile antibody was negative 2 Sepsis related to community-acquired pneumonia 3 Fever, diffuse body aches, elevated inflammatory markers, possibility of Covid 19 still being considered 4 Elevated liver enzymes related to sepsis 5 History of smoking, patient carries a history of 10 years of smoking half a pack a day 6 History of depression 7 History of gallstones 8 History of THC 9 Elevated d-dimer, no evidence of pulmonary embolism on CT chest Plan: The patient was seen and evaluated by Dr. Magallon She is improved today compared to yesterday Continue the current treatment plan for now Increase her activity as tolerated Repeat chest x-ray in a.m. We'll continue to follow I, the cosigning physician, performed a history & physical examination of the patient. Lungs sounds scattered rhonchi more so on the right lung. Maintaining good O2 saturations in the 90s on room air. I discussed the assessment and plan of care with my nurse practitioner, Leda Scott. I attest to the above note as dictated by her.
--- NOTE | 2019-11-08 15:41 | PN ---
PROGRESS NOTE DATE OF SERVICE: 11/08/2019 This 34-year-old woman was admitted with acute right lower lobe pneumonia, also had features of sepsis. The patient was extremely sick yesterday. Today is slightly better. Covid-19 is negative. The patient on broad spectrum IV antibiotics. 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 The Legionella mycoplasma testing is pending at this time. C difficile negative. Patient also some diarrhea as well. Dr. Magallon is following the patient closely. Past medical history reviewed. REVIEW OF SYSTEMS: CARDIOVASCULAR SYSTEM: No angina. No palpitations. RESPIRATORY: As mentioned earlier. GI: No nausea or vomiting. No diarrhea. no dysuria. NERVOUS SYSTEM: No numbness or weakness. CURRENT MEDICATIONS: Reviewed and include: 1. Tylenol. 2. [place]. 3. Ventolin. 4. Zithromax. 5. Tessalon Perles. 6. Rocephin. 7. Hexadrol. 8. Lovenox. 9. Pepcid. 10.Robitussin. 11.Advil. 12.Narcan. 13.Zinc oxide. PHYSICAL EXAM: Patient is alert and oriented times three. Pulse 75, blood pressure 122/85, respirations 17, temperature 97.8, pulse ox 98% on room air. HEENT: Conjunctivae normal. NECK: No JVD. CARDIOVASCULAR: S1, S2 muffled. RESPIRATIONS: Breath sounds diminished in the bases. A few scattered rhonchi and crackles. ABDOMEN: Soft, nontender. LEGS are no edema. No swelling. NERVOUS SYSTEM: No focal deficits. LABS: WBC 12, hemoglobin is 12.6, and alkaline phosphatase is 145. C-reactive protein is 27, albumin 3.4. ASSESSMENT: 1. Acute right lower lobe pneumonia possibly community-acquired, possibly pneumonia with sepsis. 2. Covid-19 negative. 3. Increased WBC. 4. Increased AST, ALT. 5. Increased alkaline phosphatase. 6. Increased LDH. 7. Increased CRP. 8. Increased D-dimer. 9. Proteinuria. 10.History of gallstones. 11.History of cholecystectomy. 12.History of depression. 13.History of nicotine dependence. 14.History of THC. 15.Obesity with body mass index of 35. RECOMMENDATIONS AND DISCUSSION: Recommend to continue current medications, monitoring and symptomatic treatment. Continue with antibiotics, bronchodilators. Continue steroids. Closely follow. The Legionella mycoplasma testing is pending at this time. Prognosis guarded because of multiple complex medical issues. Further recommendations to follow. MMODL / IJN: [id number] /
[2019-11-08] MEDS ORDERED: ALPRAZolam 0.25 MG TAB PO STA (16:58)
[2019-11-08] MEDS ORDERED: ALPRAZolam 0.25 MG TAB PO PRN (21:14)
[2019-11-08] MEDS: SODIUM CHLORIDE 0.9% 1,000 ML IV SCH (21:51)
--- NOTE | 2019-11-08 23:28 | PN ---
PROGRESS NOTE DATE OF SERVICE: 11/08/2019. REASON FOR FOLLOW UP: Pneumonia. INTERVAL HISTORY: Patient is currently afebrile. The patient is feeling slightly better. She is breathing comfortably. Continues to have a cough which is moderate in intensity. Minimal sputum. No nausea. No abdominal pain or diarrhea. EXAM: Blood pressure 144/80 with a pulse of 86, temperature is 97.8. She is 97% on room air. General description: The patient is a middle-aged female lying in bed in no distress. Respiratory system: Unlabored breathing, decreased intensity of breath sounds. No wheeze. HEART: S1, S2. Regular rate and rhythm. Abdomen is soft, no tenderness. LABORATORY DATA: BUN of 11, creatinine 0.6. Sputum cultures currently pending. DIAGNOSTIC IMPRESSION AND PLAN: Patient admitted to the hospital with sepsis, source of pneumonia community-acquired. Currently urine for Legionella antigen as well as sputum cultures are pending. Patient is covered with Rocephin and Cefepime, to continue and monitor clinical course closely. MMODL / IJN: [id number] /
[2019-11-09] MEDS: HYDROcodone/APAP 5-325MG 1 EACH TAB PO PRN ×2 (04:56→18:17)
[2019-11-09 06:52] LABS: Basophils # (A) 0.1 k/uL (0-0.2); Basophils % (A) 0 %; Eosinophils # (A) 0.1 k/uL (0-0.7); Eosinophils % (A) 1 %; HCT 34.6 % (34.0-46.0); HGB 11.4 gm/dL (11.4-16.0); Lymphocytes % (A) 12 %; MCH 30.7 pg (25.0-35.0); MCHC 32.8 g/dL (31.0-37.0); MCV 93.6 fL (80.0-100.0); Mean Platelet Volume 8.1; Monocytes # (A) 1.1 k/uL (0-1.0); Monocytes % (A) 7 %; Neutrophils % (A) 79 %; Platelet Count 279 k/uL (150-450); RDW 12.9 % (11.5-15.5); WBC 16.5 k/uL (3.8-10.6)
--- NOTE | 2019-11-09 07:57 | XR ---
EXAMINATION TYPE: XR chest 1V portable DATE OF EXAM: 11/09/2019 COMPARISON: 11/06/2019 INDICATION: Follow-up pneumonia TECHNIQUE: Single frontal view of the chest is obtained. FINDINGS: The heart size is normal. The pulmonary vasculature is normal. Mild right lower lobe infiltrate remains present compatible with mild pneumonia. This appears to be i mproving. IMPRESSION: 1. Mildly improving right lower lobe pneumonia
[2019-11-09] MEDS: ALBUTEROL HFA INHALER INHALATION SCH ×4 (07:58→20:16)
[2019-11-09] MEDS: ENOXAPARIN 40 MG/0.4 ML SYRINGE SQ SCH (08:27)
[2019-11-09] MEDS: FAMOTIDINE 20 MG TAB PO SCH ×2 (08:27→20:55)
[2019-11-09] MEDS: dexAMETHasone 4 MG TAB PO SCH (08:27)
[2019-11-09] MEDS: ZINC SULFATE 220 MG CAP PO SCH ×2 (08:27→20:55)
[2019-11-09] MEDS: BENZONATATE 100 MG CAP PO SCH ×3 (08:27→20:55)
[2019-11-09] MEDS: AZITHROMYCIN 500 MG TAB PO SCH (08:28)
[2019-11-09 11:36] LABS: African American GFR (CKD) 146.4 (60.0-200.0); Albumin/Globulin Ratio 1.3 (1.60-3.17); C Reactive Protein 11.4 mg/dL (0.0-0.8); Calcium 8.1 mg/dL (8.7-10.3); Globulin 2.3 g/dL (1.6-3.3); Non-African American GFR(CKD) 126.3 (60.0-200.0); Total Bilirubin 0.2 mg/dL (0.2-1.2); Total Protein 5.3 g/dL (6.2-8.2)
[2019-11-09] MEDS ORDERED: TEMAZEPAM 30 MG CAP PO PRN (13:14)
--- NOTE | 2019-11-09 14:23 | P.PN ---
Subjective Progress Note Date: 11/09/19 Principal diagnosis: Community-acquired right lower lobe pneumonia This is a 34-year-old white female patient with no significant medical history, a smoker, patient smokes a half a pack a day for last 10 years, who presented to the hospital on 11/06/2019 at 11:30 in the morning and the patient was sent in from the [facility] urgent care clinic for evaluation of fever, shortness of breath, cough, diffuse body aches. Onset of symptoms was on Sunday morning, with a fever of up to 102 degrees Fahrenheit, diffuse body aches. 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 However patient recalls going to [employer] last week, and she stated people were not wearing masks [employer], and apparently an employee there was complaining of body aches. By her symptoms worsened, she developed a cough, and shortness of breath. She continued to be febrile. She started to experience chest pain in the right lower part of the chest. She feels congested. She went to be seen at the urgent care clinic at the [facility] she was tested for Cov id 19 and the test was negative. However the chest x-ray showed right lower lobe pneumonia, and patient continued to be febrile and she was sent into the emergency department for evaluation and further treatment. Chest x-ray in the emergency department showed a right lower lobe infiltrate compatible with pneumonia. In last 24 hours T-max was 103.1F, patient has been continuously febrile for the most part in the last 24 hours, she is on 2 L of oxygen and a pulse ox of 93%, she is dyspneic, she is tachycardic, she was started on azithromycin and Rocephin for possibility of a right lower lobe pneumonia, her labs were reviewed showing leukocytosis, with white blood cell count of 19.7, hemoglobin of 14.8, lymph count of 0.6, d-dimer is elevated to 0.07, sodium is 132, potassium is 4.3, CO2 is 21, BUN is 10, creatinine 0.63. Urinalysis showed a cloudy urine, with moderate blood, trace leuks, elevated bilirubin. LFTs were elevated with AST of 53, ALT of 45, and alkaline phosphatase of 169, LDH was 839, CRP was 259, pro calcitonin came back elevated to 0.68, omalley virus PCR was repeated here and was not detected, influenza screen was negative, heterophile antibody was negative. Patient is producing some yellow colored sputum at times, denies any hemoptysis. The patient is seen today 11/08/2019 in follow-up on the regular medical floor. She is currently resting comfortably in bed. She states she is feeling quite a bit better today compared to yesterday. He is maintaining good O2 saturation in the mid 90s on a room air. She's been afebrile. Hemodynamically stable. Blood culture reveals no growth to date. Urine culture reveals no growth. Sputum culture pending. White count 12.0. Hemoglobin 12.6. Sodium 135. Potassium 4.2. Creatinine 0.6. She remains on ceftriaxone and azithromycin. Tessalon Perles for her cough. Lovenox for DVT prophylaxis. The patient is seen today 11/09/2019 in follow-up on the regular medical floor. She is currently resting in bed. Awake and alert in no acute distress. She is doing quite a bit better today compared to yesterday. Maintaining good O2 saturations in the 90s on room air. She's been afebrile. Continues with a loose nonproductive cough. Some dyspnea on exertion. Blood, urine and sputum cultures reveal no growth. White count 16.5. Hemoglobin 11.4. Sodium 138. Potassium 4.0. Creatinine 0.5. She remains on ceftriaxone and azithromycin. Chest x-ray showed mild improvement in the right lower lobe pneumonia. Objective - Vital Signs Vital signs: Vital Signs Temp 97.9 F 11/09/19 07:31 Pulse 80 11/09/19 07:31 Resp 20 11/09/19 07:31 BP 143/92 11/09/19 07:31 Pulse Ox 97 11/09/19 07:31 Intake & Output 11/08/19 11/09/19 11/09/19 18:59 06:59 18:59 Intake Total 250 Balance 250 Intake: Oral 250 Other: Voiding Method Toilet Toilet # Voids 3 2 3 - Exam GENERAL EXAM: Alert, very pleasant, 34-year-old female patient, on room air, comfortable in no apparent distress. HEAD: Normocephalic/atraumatic. EYES: Normal reaction of pupils, equal size. Conjunctiva pink, sclera white. NOSE: Clear with pink turbinates. THROAT: No erythema or exudates. NECK: No masses, no JVD, no thyroid enlargement, no adenopathy. CHEST: No chest wall deformity. Symmetrical expansion. LUNGS: Equal air entry with scattered rhonchi more so on the right lung. CVS: Regular rate and rhythm, normal S1 and S2, no gallops, no murmurs, no rubs ABDOMEN: Soft, nontender. No hepatosplenomegaly, normal bowel sounds, no guarding or rigidity. EXTREMITIES: No clubbing, no edema, no cyanosis, 2+ pulses and upper and lower extremities. MUSCULOSKELETAL: Muscle strength and tone normal. SPINE: No scoliosis or deformity SKIN: No rashes CENTRAL NERVOUS SYSTEM: No focal deficits, tone is normal in all 4 extremities. PSYCHIATRIC: Alert and oriented -3. Appropriate affect. Intact judgment and insight. - Labs CBC & Chem 7: 11/09/19 06:00 11/09/19 06:00 Labs: Abnormal Lab Results - Last 24 Hours (Table) 11/09/19 11/09/19 Range/Units 06:00 06:00 WBC 16.5 H (3.8-10.6) k/uL RBC 3.70 L (3.80-5.40) m/uL Neutrophils # 13.0 H (1.3-7.7) k/uL Monocytes # 1.1 H (0-1.0) k/uL Creatinine 0.5 L (0.6-1.5) mg/dL BUN/Creatinine Ratio 22.00 H (12.00-20.00) Ratio Glucose 126 H (70-110) mg/dL Calcium 8.1 L (8.7-10.3) mg/dL Lactate Dehydrogenase 330 H (120-246) U/L C-Reactive Protein 11.4 H (0.0-0.8) mg/dL Total Protein 5.3 L (6.2-8.2) g/dL Albumin 3.00 L (3.80-4.90) g/dL Albumin/Globulin Ratio 1.30 L (1.60-3.17) g/dL Microbiology - Last 24 Hours (Table) 11/06/19 11:47 Blood Culture - Preliminary Blood No Growth after 72 hours 11/07/19 11:30 Gram Stain - Final Sputum Sputum Culture - Final 11/06/19 21:50 Urine Culture - Final Urine,Voided Assessment and Plan Assessment: 1 Acute hypoxic respiratory failure related to community acquired pneumonia in the right lower lobe, COVID 19 PCR was negative 2 at the [facility] urgent care clinic, and here at [facility], inflammatory markers are elevated, possibility of COVID 19 still being considered. Influenza ruled out, heterophile antibody was negative 2 Sepsis related to community-acquired pneumonia 3 Fever, diffuse body aches, elevated inflammatory markers, possibility of Covid 19 still being considered 4 Elevated liver enzymes related to sepsis 5 History of smoking, patient carries a history of 10 years of smoking half a pack a day 6 History of depression 7 History of gallstones 8 History of THC 9 Elevated d-dimer, no evidence of pulmonary embolism on CT chest Plan: The patient was seen and evaluated by Dr. Magallon Chest x-ray showing mild improvement in the right lower lobe pneumonia Continue the current treatment plan for now Increase her activity as tolerated We'll continue to follow I, the cosigning physician, performed a history & physical examination of the patient. Lungs sounds scattered rhonchi more so on the right lung. Maintaining good O2 saturations in the 90s on room air. I discussed the assessment and plan of care with my nurse practitioner, Leda Scott. I attest to the above note as d ictated by her.
[2019-11-09] MEDS: SODIUM CHLORIDE 0.9% 1,000 ML IV SCH (16:26)
[2019-11-09] MEDS: TEMAZEPAM 15 MG CAP PO PRN (21:01)
--- NOTE | 2019-11-10 01:20 | PN ---
PROGRESS NOTE DATE OF SERVICE: 11/09/2019 This 34-year-old woman who was admitted with features of pneumonia is being evaluated for Legionella pneumonia. The patient is slightly better. Most recent chest x-ray showed still persistent shadows in the right lower lobe, but still improved. No chest pain. No palpitations. Dr. Magallon is following the patient closely. PHYSICAL EXAMINATION: On exam, alert and oriented x3. Pulse is 74, blood pressure 135/86, respirations 16, temperature 98.2, pulse ox 94% on room air. HEENT: Conjunctivae normal. NECK: No jugular venous distention. CARDIOVASCULAR: S1, S2 muffled. RESPIRATORY: Breath sounds diminished at the bases. A few scattered rhonchi and crackles. ABDOMEN: Soft, nontender. LEGS: No edema. NERVOUS SYSTEM: No focal deficits. LABS: WBC 16.5, otherwise, C-reactive protein 11.4. Total protein is 5.3. LDH has normalized. ASSESSMENT: 1. Acute right lower lobe pneumonia possibly community-acquired with pneumonia, sepsis, rule out Legionella pneumonia. 2. COVID-19 negative. 3. Increased WBC. 4. Increased AST, ALT. 5. Increased alkaline phosphatase. 6. Increased LDH. 7. Increased CRP. 8. Increased D-dimer. 9. Proteinuria. 10.History of gallstones. 11.History of cholecystectomy. 12.History of depression. 13.History of nicotine dependence. 14.History of THC. 15.Obesity with body mass index of 35. RECOMMENDATIONS AND DISCUSSION: Recommend to continue current medications. Continue with monitoring and symptomatic treatment. Otherwise at this time I would recommend continue with current medication, continue symptomatic treatment. A chest x-ray reviewed. Closely follow with Pulmonary. Guarded prognosis. Further recommendations to follow. MMODL / IJN: [id number] /
[2019-11-10 03:31] LABS: Mycoplasma IgG Antibody (EIA) 1.95 INDEX (<=0.90); Mycoplasma IgM Antibody 0.11 INDEX (<=0.90)
--- NOTE | 2019-11-10 06:42 | PN ---
PROGRESS NOTE DATE OF SERVICE: 11/09/2019 REASON FOR FOLLOWUP: Pneumonia. INTERVAL HISTORY: The patient is currently afebrile. The patient is breathing more comfortably. The patient denies having any chest pain. Minimal cough. No nausea, no vomiting. No abdominal pain or diarrhea. PHYSICAL EXAMINATION: Blood pressure is 135/86, pulse of 74, temperature 98.2. She is 95% on room air. General description is a middle-aged female lying in bed in no distress. RESPIRATORY SYSTEM: Unlabored breathing, decreased breath sounds at the bases. No wheeze. HEART: S1, S2. Regular rate and rhythm. ABDOMEN: Soft, no tenderness. LABS: Hemoglobin is 11.4, white count 16.5, BUN of 11, creatinine 0.5. CRP is 11.4. Sputum is usual respiratory bruce. Urine for Legionella antigen is still pending. DIAGNOSTIC IMPRESSION AND PLAN: Patient with fever secondary to pneumonia, likely community-acquired in this patient who significantly showed overall clinical improvement on Rocephin and Zithromax. Sputum has been usual respiratory bruce. We are waiting for the results of Legionella antigen. White count showing upward trend to be monitor closely as the patient has shown clinical improvement. Continue with supportive care. MMODL / IJN: [id number] /
[2019-11-10] MEDS: ALBUTEROL HFA INHALER INHALATION SCH ×4 (08:16→20:04)
[2019-11-10] MEDS: dexAMETHasone 4 MG TAB PO SCH (08:36)
[2019-11-10] MEDS: ZINC SULFATE 220 MG CAP PO SCH ×2 (08:37→21:24)
[2019-11-10] MEDS: FAMOTIDINE 20 MG TAB PO SCH ×2 (08:37→21:23)
[2019-11-10] MEDS: BENZONATATE 100 MG CAP PO SCH ×3 (08:37→21:24)
[2019-11-10] MEDS: AZITHROMYCIN 500 MG TAB PO SCH (08:37)
[2019-11-10] MEDS: ENOXAPARIN 40 MG/0.4 ML SYRINGE SQ SCH (08:37)
[2019-11-10] MEDS: HYDROcodone/APAP 5-325MG 1 EACH TAB PO PRN ×2 (08:40→21:23)
[2019-11-10] MEDS: SODIUM CHLORIDE 0.9% 1,000 ML IV SCH (11:12)
--- NOTE | 2019-11-10 14:12 | P.PN ---
Subjective Progress Note Date: 11/10/19 Principal diagnosis: Rule out Legionella pneumonia This is a 34-year-old white female patient with no significant medical history, a smoker, patient smokes a half a pack a day for last 10 years, who presented to the hospital on 11/06/2019 at 11:30 in the morning and the patient was sent in from the [facility] urgent care clinic for evaluation of fever, shortness of breath, cough, diffuse body aches. Onset of symptoms was on Sunday morning, with a fever of up to 102 degrees Fahrenheit, diffuse body aches. 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 However patient recalls going to [employer] shop last week, and she stated people were not wearing masks [employer], and apparently an employee there was complaining of body aches. By her symptoms worsened, she developed a cough, and shortness of breath. She continued to be febrile. She started to experience chest pain in the right lower part of the chest. She feels congested. She went to be seen at the urgent care clinic at the [facility] she was tested for Covid 19 and the test was negative. However the chest x-ray showed right lower lobe pneumonia, and patient continued to be febrile and she was sent into the emergency department for evaluation and further treatment. Chest x-ray in the emergency department showed a right lower lobe infiltrate compatible with pneumonia. In last 24 hours T-max was 103.1F, patient has been continuously febrile for the most part in the last 24 hours, she is on 2 L of oxygen and a pulse ox of 93%, she is dyspneic, she is tachycardic, she was started on azithromycin and Rocephin for possibility of a right lower lobe pneumonia, her labs were reviewed showing leukocytosis, with white blood cell count of 19.7, hemoglobin of 14.8, lymph count of 0.6, d-dimer is elevated to 0.07, sodium is 132, potassium is 4.3, CO2 is 21, BUN is 10, creatinine 0.63. Urinalysis showed a cloudy urine, with moderate blood, trace leuks, elevated bilirubin. LFTs were elevated with AST of 53, ALT of 45, and alkaline phosphatase of 169, LDH was 839, CRP was 259, pro calcitonin came back elevated to 0.68, omalley virus PCR was repeated here and was not detected, influenza screen was negative, heterophile antibody was negative. Patient is producing some yellow colored sputum at times, denies any hemoptysis. On 11/10/2019 patient seen in follow-up on medical surgical floor. She is feeling much better today, she's been afebrile for the last 48 hours, room air pulse ox is 95%, hemodynamically patient is stable, the chest discomfort has improved, her breathing is comfortable, she has 0.9 infusing at a rate of 50 ML per hour, Legionella urine antigen is still pending, patient is covered , and addition of azithromycin and Rocephin for possibility of community acquired pneumonia and legionella pneumonia. No acute events overnight, no hemoptysis, last chest x-ray was done yesterday showing mildly improving right lower lobe pneumonia Objective - Vital Signs Vital signs: Vital Signs Temp 98.2 F 11/10/19 07:00 Pulse 64 11/10/19 07:00 Resp 18 11/10/19 07:00 BP 159/101 11/10/19 07:00 Pulse Ox 95 11/10/19 07:00 Intake & Output 11/09/19 11/10/19 11/10/19 18:59 06:59 18:59 Intake Total 500 Balance 500 Intake: Oral 500 Other: Voiding Method Toilet # Voids 3 1 - Exam GENERAL EXAM: Alert, very pleasant, 34-year-old white female, on room air with the pulse ox 95% comfortable in no apparent distress. HEAD: Normocephalic/atraumatic. EYES: Normal reaction of pupils, equal size. Conjunctiva pink, sclera white. NOSE: Clear with pink turbinates. THROAT: No erythema or exudates. NECK: No masses, no JVD, no thyroid enlargement, no adenopathy. CHEST: No chest wall deformity. Symmetrical expansion. LUNGS: Equal air entry with no crackles, wheeze, rhonchi or dullness. CVS: Regular rate and rhythm, normal S1 and S2, no gallops, no murmurs, no rubs ABDOMEN: Soft, nontender. No hepatosplenomegaly, normal bowel sounds, no guarding or rigidity. EXTREMITIES: No clubbing, no edema, no cyanosis, 2+ pulses and upper and lower extremities. MUSCULOSKELETAL: Muscle strength and tone normal. SPINE: No scoliosis or deformity SKIN: No rashes CENTRAL NERVOUS SYSTEM: Alert and oriented -3. No focal deficits, tone is normal in all 4 extremities. PSYCHIATRIC: Alert and oriented -3. Appropriate affect. Intact judgment and insight. - Labs CBC & Chem 7: 11/09/19 06:00 11/09/19 06:00 Labs: Abnormal Lab Results - Last 24 Hours (Table) 11/07/19 Range/Units 07:09 Mycoplasma pneumon IgG 1.95 H (<=0.90) INDEX Microbiology - Last 24 Hours (Table) 11/06/19 11:47 Blood Culture - Preliminary Blood No Growth after 96 hours Assessment and Plan Plan: Assessment: #1. Acute hypoxic rest or a failure related to possibility of community acquired pneumonia in the right lower lobe, COVID 19 PCR was negative 2 at the [facility] urgent care clinic, and here at [facility], inflammatory markers are elevated. Influenza ruled out, heterophile antibody was negative, urine antigen is pending as the patient had possible exposure to one of her coworkers who is currently hospitalized with Legionella pneumonia #2. Sepsis related to community-acquired pneumonia and possibility of Legion quinn pneumonia #3. Fever, diffuse body aches, elevated inflammatory markers, related to the above, #4. Elevated liver enzymes related to sepsis #5. History of smoking, patient carries a history of 10 years of smoking half a pack a day #6. History of depression #7. History of gallstones #8. History of THC #9. Elevated d-dimer, no evidence of pulmonary embolism on CT chest Plan: Continue antibiotic per ID service recommendations, clinically patient is doing better, breathing easier, chest discomfort has improved, she is afebrile, no acute events overnight, still awaiting results of the urine Legionella antigen. Increase activity as tolerated. Follow-up chest x-ray in the morning I performed a history & physical examination of the patient and discussed their management with my nurse practitioner, Alla Cruz. I reviewed the nurse practitioner's note and agree with the documented findings and plan of care. Lung sounds are positive for diffuse wheezes throughout the lung thayer. The findings and the impression was discussed with the patient. I attest to the documentation by the nurse practitioner. Time with Patient: Less than 30
--- NOTE | 2019-11-10 17:47 | PN ---
PROGRESS NOTE DATE OF SERVICE: 11/10/2019 This 34-year-old woman who was admitted with acute bilateral pneumonia is being evaluated for Legionella pneumonia. No chest pain. No palpitations. No fever. The patient has occasional cough. PHYSICAL EXAMINATION: Alert and oriented x3. Pulse 82, blood pressure 140/94, respiration 18, temperature 98.2, pulse ox 94% on room air. HEENT: Conjunctivae normal. NECK: No jugular venous distention. CARDIOVASCULAR SYSTEM: S1, S2 muffled. RESPIRATORY SYSTEM: Breath sounds diminished at the bases. Bilateral scattered rhonchi and crackles. ABDOMEN: Soft. NERVOUS SYSTEM: No focal deficit. LABS: WBC 16.5, hemoglobin 11.4. Other labs are noted. ASSESSMENT: 1. Acute right lower lobe pneumonia, possibly community-acquired pneumonia. Rule out Legionella pneumonia. 2. COVID-19 negative. 3. Increased white count. 4. Increased AST, ALT. 5. Increased alkaline phosphatase. 6. Increased LDH. 7. Increased CRP. 8. Increased D-dimer. 9. Proteinuria. 10.History of gallstones. 11.History of cholecystectomy. 12.History of depression. 13.History of nicotine dependence. 14.History of tetrahydrocannabinol. 15.Obesity with body mass index of 35. RECOMMENDATIONS AND DISCUSSION: I recommend to continue current medications, continue with the monitoring, symptomatic treatment. Continue with the bronchodilators. Continue with empiric antibiotics. Continue the rest of the medications. Closely follow with Pulmonary. Await Legionella testing. Further recommendations to follow. Repeat chest x-ray in the morning. MMODL / IJN: [id number] /
[2019-11-10] MEDS: TEMAZEPAM 15 MG CAP PO PRN (21:23)
[2019-11-10] MEDS ORDERED: LEVOFLOXACIN 750MG-D5W PMX 750 MG in DEXTROSE/WATER 1 150ML.BAG IVPB STA (21:53)
--- NOTE | 2019-11-11 01:12 | PN ---
PROGRESS NOTE DATE OF SERVICE: 11/10/2019 REASON FOR FOLLOWUP: Acute Legionella pneumonia. INTERVAL HISTORY: The patient is currently afebrile. The patient is breathing comfortably. The patient denies any chest pain. Did have some cough which is dry. No nausea, no vomiting. No abdominal pain, no diarrhea. PHYSICAL EXAMINATION: Blood pressure 131/92 with a pulse of 75, temperature 98. She is 97% on room air. General description is a middle-aged female lying in bed in no distress. RESPIRATORY SYSTEM: Unlabored breathing, decreased intensity of breath sounds. No wheeze. HEART: S1, S2. Regular rate and rhythm. ABDOMEN: Soft, no tenderness. LABS: No new labs have been obtained today. The patient urine for Legionella antigen came back positive. DIAGNOSTIC IMPRESSION AND PLAN: Patient with acute Legionella pneumonia. Antibiotic will be adjusted to Levaquin 750 mg daily with first dose IV. Plan for at least 2-week course of therapy. 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 MMODL / IJN: [id number] /
[2019-11-11 07:36] VITALS: RESP 16; TEMP 97.9
[2019-11-11] MEDS: ALBUTEROL HFA INHALER INHALATION SCH ×3 (07:42→15:06)
--- NOTE | 2019-11-11 08:24 | XR ---
EXAMINATION TYPE: XR chest 2V DATE OF EXAM: 11/11/2019 COMPARISON: Chest x-ray 2 days ago. CTA chest 5 days ago. HISTORY: Shortness of breath and pneumonia. TECHNIQUE: Frontal and lateral views of the chest are obtained. FINDINGS: There is persistent most dense consolidation in the right lower lobe posteriorly. Addition al multifocal areas of groundglass opacity on CT remain well seen. No pleural effusion or pneumothora x seen bilaterally. The cardiac silhouette size remains within normal limits. The osseous structur es are intact. Cholecystectomy clips are redemonstrated. IMPRESSION: Persistent posterior right lower lobe consolidation. And additional smaller areas of foc al groundglass opacity on CT less well seen. No significant change from most recent x-ray.
[2019-11-11] MEDS: BENZONATATE 100 MG CAP PO SCH (08:41)
[2019-11-11] MEDS: ZINC SULFATE 220 MG CAP PO SCH (08:41)
[2019-11-11] MEDS: ENOXAPARIN 40 MG/0.4 ML SYRINGE SQ SCH (08:41)
[2019-11-11] MEDS: FAMOTIDINE 20 MG TAB PO SCH (08:41)
--- NOTE | 2019-11-11 11:51 | P.PN ---
Subjective Progress Note Date: 11/11/19 Principal diagnosis: Rule out Legionella pneumonia This is a 34-year-old white female patient with no significant medical history, a smoker, patient smokes a half a pack a day for last 10 years, who presented to the hospital on 11/06/2019 at 11:30 in the morning and the patient was sent in from the [facility] urgent care clinic for evaluation of fever, shortness of breath, cough, diffuse body aches. Onset of symptoms was on Sunday morning, with a fever of up to 102 degrees Fahrenheit, diffuse body aches. 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 However patient recalls going to [employer] shop last week, and she stated people were not wearing masks [employer], and apparently an employee there was complaining of body aches. By her symptoms worsened, she developed a cough, and shortness of breath. She continued to be febrile. She started to experience chest pain in the right lower part of the chest. She feels congested. She went to be seen at the urgent care clinic at the [facility] she was tested for Covid 19 and the test was negative. However the chest x-ray showed right lower lobe pneumonia, and patient continued to be febrile and she was sent into the emergency department for evaluation and further treatment. Chest x-ray in the emergency department showed a right lower lobe infiltrate compatible with pneumonia. In last 24 hours T-max was 103.1F, patient has been continuously febrile for the most part in the last 24 hours, she is on 2 L of oxygen and a pulse ox of 93%, she is dyspneic, she is tachycardic, she was started on azithromycin and Rocephin for possibility of a right lower lobe pneumonia, her labs were reviewed showing leukocytosis, with white blood cell count of 19.7, hemoglobin of 14.8, lymph count of 0.6, d-dimer is elevated to 0.07, sodium is 132, potassium is 4.3, CO2 is 21, BUN is 10, creatinine 0.63. Urinalysis showed a cloudy urine, with moderate blood, trace leuks, elevated bilirubin. LFTs were elevated with AST of 53, ALT of 45, and alkaline phosphatase of 169, LDH was 839, CRP was 259, pro calcitonin came back elevated to 0.68, omalley virus PCR was repeated here and was not detected, influenza screen was negative, heterophile antibody was negative. Patient is producing some yellow colored sputum at times, denies any hemoptysis. On 11/10/2019 patient seen in follow-up on medical surgical floor. She is feeling much better today, she's been afebrile for the last 48 hours, room air pulse ox is 95%, hemodynamically patient is stable, the chest discomfort has improved, her breathing is comfortable, she has 0.9 infusing at a rate of 50 ML per hour, Legionella urine antigen is still pending, patient is covered , and addition of azithromycin and Rocephin for possibility of community acquired pneumonia and legionella pneumonia. No acute events overnight, no hemoptysis, last chest x-ray was done yesterday showing mildly improving right lower lobe pneumonia On 11/11/2019 patient seen in follow-up on medical surgical floor, Legionella urine antigen was positive, patient was started on Levaquin. Clinically she continues to improve, she's been afebrile, she is on room air, with a pulse ox of 97%, no chest pain, no worsening shortness of breath, breathing seems to be quite comfortable, patient has been ambulating in the room, tolerating activity well. No new labs today. Today's chest x-ray has been reviewed showing persistent posterior right lower lobe consolidation, and smaller areas of focal groundglass opacity on CT remain well seen. No significant change from most recent x-ray. Clinically stable, patient is being discharged home today Objective - Vital Signs Vital signs: Vital Signs Temp 97.9 F 11/11/19 07:00 Pulse 58 L 11/11/19 07:00 Resp 16 11/11/19 07:00 BP 144/93 11/11/19 07:00 Pulse Ox 96 11/11/19 07:00 Intake & Output 11/10/19 11/11/19 11/11/19 18:59 06:59 18:59 Intake Total 732 200 Balance 732 200 Intake: Oral 732 200 Other: Voiding Method Toilet Toilet # Voids 1 3 - Exam GENERAL EXAM: Alert, very pleasant, 34-year-old white female, on room air with the pulse ox 95% comfortable in no apparent distress. HEAD: Normocephalic/atraumatic. EYES: Normal reaction of pupils, equal size. Conjunctiva pink, sclera white. NOSE: Clear with pink turbinates. THROAT: No erythema or exudates. NECK: No masses, no JVD, no thyroid enlargement, no adenopathy. CHEST: No chest wall deformity. Symmetrical expansion. LUNGS: Equal air entry with no crackles, wheeze, rhonchi or dullness. CVS: Regular rate and rhythm, normal S1 and S2, no gallops, no murmurs, no rubs ABDOMEN: Soft, nontender. No hepatosplenomegaly, normal bowel sounds, no guarding or rigidity. EXTREMITIES: No clubbing, no edema, no cyanosis, 2+ pulses and upper and lower extremities. MUSCULOSKELETAL: Muscle strength and tone normal. SPINE: No scoliosis or deformity SKIN: No rashes CENTRAL NERVOUS SYSTEM: Alert and oriented -3. No focal deficits, tone is normal in all 4 extremities. PSYCHIATRIC: Alert and oriented -3. Appropriate affect. Intact judgment and insight. - Labs CBC & Chem 7: 11/09/19 06:00 11/09/19 06:00 Labs: Abnormal Lab Results - Last 24 Hours (Table) 11/07/19 Range/Units 11:39 Urine Legionella Ag Positive H (Negative) Microbiology - Last 24 Hours (Table) 11/06/19 11:47 Blood Culture - Preliminary Blood No Growth after 96 hours Assessment and Plan Plan: Assessment: #1. Acute hypoxic respiratory failure related to Legionella pneumonia. Legionella urine antigen is positive and the patient had one of her coworkers who is currently hospitalized with Legionella pneumonia. COVID 19 PCR was ne gative [address] [facility] urgent care clinic, and here at [facility], inflammatory markers are elevated. Influenza ruled out, heterophile antibody was negative #2. Sepsis related to Legionella pneumonia #3. Fever, diffuse body aches, elevated inflammatory markers, related to the above, improved #4. Elevated liver enzymes related to sepsis, #5. History of smoking, patient carries a history of 10 years of smoking half a pack a day #6. History of depression #7. History of gallstones #8. History of THC #9. Elevated d-dimer, no evidence of pulmonary embolism on CT chest Plan: Clinically stable, patient was started on Levaquin for evidence of Legionella pneumonia, no worsening dyspnea, patient is on room air, no fever or chills, today's chest x-ray has been reviewed, showing relatively stable findings compared to yesterday's chest x-ray, with right lower lobe pneumonia, possibly slightly improved. Stable for discharge home from pulmonary perspective with ID service recommendation choice. She will need outpatient follow-up in the office in 7-10 days I performed a history & physical examination of the patient and discussed their management with my nurse practitioner, Alla Cruz. I reviewed the nurse practitioner's note and agree with the documented findings and plan of care. Lung sounds are positive for diffuse wheezes throughout the lung thayer. The findings and the impression was discussed with the patient. I attest to the documentation by the nurse practitioner. Time with Patient: Less than 30
[2019-11-11 15:21] VITALS: BP 135/88; PULSE 108
--- NOTE | 2019-11-11 15:34 | PN ---
PROGRESS NOTE DATE OF SERVICE: 11/11/2019 REASON FOR FOLLOWUP: Acute Legionella pneumonia. INTERVAL HISTORY: Patient is currently afebrile. The patient is breathing comfortably. the patient denies having any chest pain, no shortness of breath with minimal cough. No nausea, no vomiting. No abdominal pain, no diarrhea. PHYSICAL EXAMINATION: Blood pressure 144/90 with a pulse of 58, temperature 97.9. General description is an middle-aged female lying in bed in no distress. RESPIRATORY SYSTEM: Unlabored breathing, decreased breath sounds at the base. No wheeze. HEART: S1, S2. Regular rate and rhythm. ABDOMEN: Soft, no tenderness. LABS: No new labs have been obtained today. DIAGNOSTIC IMPRESSION AND PLAN: Patient acute Legionella pneumonia in this patient who continues clinical response to the Rocephin, Zithromax, antibiotic switched to Levaquin for another 12 days to finish a course of therapy and close outpatient followup. All her questions and concerns were answered. MMODL / IJN: [id number] /
[2019-11-11] MEDS ORDERED: LEVOFLOXACIN 750 MG TAB PO SCH (21:00)
--- NOTE | 2019-11-14 23:19 | P.DS ---
Providers Date of admission: 11/06/19 13:02 Attending physician: Haley Pillai Consults: 11/06/19 19:17 Consult Physician Routine Consulting Provider: Abram Magallon Consult Reason/Comments: PNEUMONIA, COVID?? Do you want consulting provider notified?: Yes Consult Physician Routine Consulting Provider: Gita Anderson Consult Reason/Comments: COVID? Do you want consulting provider notified?: Yes Primary care physician: Physician Nonstaff Hospital Course: Diagnoses: This is a pleasant 34 years old female with no significant past medical history, presents with respiratory symptoms and found to have come to T acquired pneumonia secondary to logionella which was positive in her urine. Patient also has a colleague infected with logionella pneumonia. Her test for covid-19 came back negative for twice. She has been evaluated by pulmonary and infectious disease team, she was treated with antibiotics with ceftriaxone and Zithromax and dexamethasone, patient showed interval improvement and on the day of discharge she was lying in bed comfortable, not tachypneic, she was saturating 96-97% at room air and breathing at 16-18 breaths per minute, no dyspnea, no chest pain, only mild scuffing with some chest discomfort in the middle of doing that. No change in urine or bowel habits. No fever. Patient was so eager to be discharged home today "I cannot sleep and displaced" and she was adamant to be discharged today Patient was cleared for discharge by pulmonary and infectious disease team. Patient will be discharged on short course of oral antibiotics as per ID team recommendation with levofloxacin Problems and management plan were discussed with the patient and he verbalized understanding and acceptance Patient was found stable and can be discharged home however he needs follow-up as an outpatient. Patient was instructed to follow up with PCP Dr. Castaneda within one week and patient agrees. Patient also was instructed to follow up with drivers' cash clerk in 2 weeks and she agrees to call and make her own appointment. Patient agrees with the appointments made for Dr. Magallon on 11/17 Gen: patient is a AAOx3, no distress CVS: S1-S2, RRR, no murmur Lungs: B/L CTA, no wheezing Abdomen: soft, no distention, no tenderness, positive bowel sounds Extremity: no leg edema or induration Time spent more than 35 minutes Patient Condition at Discharge: Stable Plan - Discharge Summary New Discharge Prescriptions: New Levofloxacin [Levaquin] 750 mg PO DAILY 12 Days #12 tab Albuterol Inhaler [Ventolin Hfa Inhaler] 2 puff INHALATION RT-QID #1 inh guaiFENesin-DM 100-10MG/5ML [Robitussin DM] 0 ml PO Q8HR PRN 3 Days #1 bottle PRN Reason: Cough Changed Acetaminophen Tab [Tylenol] 650 mg PO Q6HR PRN #0 PRN Reason: Pain Or Fever > 100.5 Discontinued Ibuprofen [Motrin Ib] 800 mg PO Q6H PRN PRN Reason: Pain Or Fever > 100.5 Discharge Medication List Acetaminophen Tab [Tylenol] 650 mg PO Q6HR PRN #0 11/11/19 [Rx] Albuterol Inhaler [Ventolin Hfa Inhaler] 2 puff INHALATION RT-QID #1 inh 11/11/19 [Rx] Levofloxacin [Levaquin] 750 mg PO DAILY 12 Days #12 tab 11/11/19 [Rx] guaiFENesin-DM 100-10MG/5ML [Robitussin DM] 0 ml PO Q8HR PRN 3 Days #1 bottle 11/11/19 [Rx] Follow up Appointment(s)/Referral(s): Cindy Arreola MD [REFERRING] - 1 Week (Please call office to make appointment ) Abram Magallon DO [Doctor of Osteopathic Medicine] - 11/18/19 9:30 am (BRING PHOTO ID AND INSURANCE CARD) Gita Anderson MD [STAFF PHYSICIAN] - 11/24/19 3:15 pm Patient Instructions/Handouts: [place] Fever (GEN) Activity/Diet/Wound Care/Special Instructions: Please go to [email or web address] to find a local physician. Regular diet Activity is limited till you see your doctor Discharge Disposition: HOME SELF-CARE
== END 2019-11-11 16:49 | disposition home or self-care (01) | DRG 871 ==
LOC: EC 11:28 → 4SSUR 13:02
PROVIDERS: ADMIT Hospitalist; ATTEND Hospitalist
DX: A41.89 Other specified sepsis (principal); A48.1 Legionnaires' disease; J96.01 Acute respiratory failure with hypoxia; E87.1 Hypo-osmolality and hyponatremia; Z20.828 Contact with and (suspected) exposure to other viral communicable diseases; E66.9 Obesity, unspecified; F17.210 Nicotine dependence, cigarettes, uncomplicated; Z68.35 Body mass index [BMI] 35.0-35.9, adult; Z90.49 Acquired absence of other specified parts of digestive tract; R94.5 Abnormal results of liver function studies; R74.8 Abnormal levels of other serum enzymes; R79.1 Abnormal coagulation profile; F32.9 Major depressive disorder, single episode, unspecified; R74.02 Elevation of levels of lactic acid dehydrogenase [LDH]
CPT/HCPCS: 36415; 71045; 71046; 71275; 80053; 80306; 81001; 81025; 82550; 82728; 83605; 83615; 83735; 84145; 85025; 85379; 85610; 85730; 86140; 86308; 86738; 87040; 87070; 87086; 87205; 87324; 87449; 87502; 93005; 94640; 96361; 96365; 96367; 99285

== ENCOUNTER 2021-03-31 16:26 | Emergency (ER) | payer OTHER ==
[2021-03-31 16:29] VITALS: BP 138/100; PULSE 96; RESP 18; TEMP 98.5
--- NOTE | 2021-03-31 17:15 | ED ---
General Adult HPI - General Chief complaint: Extremity Injury, Lower Stated complaint: Leg pain Time Seen by Provider: 03/31/21 16:44 Source: patient, RN notes reviewed Mode of arrival: ambulatory Limitations: no limitations - History of Present Illness Initial comments: 35-year-old female presents to the emergency department for evaluation of redness and swelling to the upper portion of the left lower extremity. Patient reports a history of venous insufficiency and varicose veins in the affected leg. States the left lower extremity is always larger than the right. Patient denies any chest pain, shortness of breath, or difficulty breathing. States she has not been on any long car rides, experienced prolonged immobilization, had recent surgery; denies use of any oral contraception. She is a smoker. - Related Data Home Medications Medication Instructions Recorded Confirmed Ondansetron [Zofran] 4 mg PO TID PRN 03/31/21 03/31/21 Allergies Allergy/AdvReac Type Severity Reaction Status Date / Time No Known Allergies Allergy Verified 03/31/21 17:21 Review of Systems ROS Statement: Those systems with pertinent positive or pertinent negative responses have been documented in the HPI. ROS Other: All systems not noted in ROS Statement are negative. Past Medical History Past Medical History: No Reported History Additional Past Medical History / Comment(s): gallstones History of Any Multi-Drug Resistant Organisms: None Reported Past Surgical History: Section, Cholecystectomy, Tubal Ligation Past Anesthesia/Blood Transfusion Reactions: No Reported Reaction Past Psychological History: Depression Smoking Status: Current some day smoker Past Alcohol Use History: Occasional Past Drug Use History: Marijuana - Past Family History Father Family Medical History: Thyroid Disorder General Exam Limitations: no limitations (Well-developed, well-nourished female in no acute distress. Initial temperature 98.5, pulse 96, respirations 18, blood pressure 138/100, pulse ox 99% on room air.) General appearance: alert, in no apparent distress Neck exam: Present: normal inspection, full ROM. Absent: tenderness, meningismus, lymphadenopathy Respiratory exam: Present: normal lung sounds bilaterally. Absent: respiratory distress, wheezes, rales, rhonchi, stridor Cardiovascular Exam: Present: regular rate, normal rhythm, normal heart sounds. Absent: systolic murmur, diastolic murmur, rubs, gallop, clicks GI/Abdominal exam: Present: soft, normal bowel sounds. Absent: distended, tenderness, guarding, rebound, rigid Left Upper Leg exam: Present: tenderness (Mild tenderness upon palpation of the errol thematous area on the medial aspect of the upper portion of the left lower extremity), swelling (Large varicosity present), erythema Knee exam: Present: normal inspection, full ROM. Absent: tenderness, erythema Lower Leg exam: Present: normal inspection, full ROM, swelling (States lower portion of the left lower extremity is always more swollen when compared to the right, however has areas of firmness that are nontender, to the medial aspect). Absent: erythema, Homans' sign Ankle exam: Present: normal inspection, full ROM. Absent: tenderness, swelling Foot/Toe exam: Present: normal inspection. Absent: tenderness, swelling Neurovascular tendon exam: Present: no vascular compromise. Absent: pulse deficit, abnormal cap refill, motor deficit, sensory deficit Neurological exam: Present: alert, oriented X3, CN II-XII intact Psychiatric exam: Present: normal affect, normal mood Skin exam: Present: warm, dry, intact Course Vital Signs 03/31/21 16:27 Temperature 98.5 F Pulse Rate 96 Respiratory 18 Rate Blood Pressure 138/100 O2 Sat by Pulse 99 Oximetry - Reevaluation(s) Reevaluation #1: 03/31/21 18:25 Upon reevaluation, patient is resting comfortably. Was provided with juice and crackers due to blood glucose 72. Awaiting ultrasound report, will update shortly. Medical Decision Making - Medical Decision Making 35-year-old female presents to the emergency department for evaluation of erythema and tenderness to the medial aspect of the left thigh. Upon exam, patient is well-appearing and in no acute distress. She has extensive varicose veins and a diagnosis of venous insufficiency. Erythematous area to the medial aspect of the left thigh is slightly warm to touch, tender, and firm. Distal sensation is intact. +2 pedal and posttibial pulses. No recent travel, long car rides, or prolonged immobilization. Patient does not experience any chest pain or shortness of breath. Laboratory studies are unremarkable. Venous Doppler study was negative for DVT, but does show thrombus within noted varicose veins. Findings were reviewed with patient and she has instructed follow-up with vascular. Encouraged to take aspirin daily. Strict return parameters were discussed in detail. Patient verbalizes understanding and agrees with this plan. This patient's care was discussed with my attending Dr. Lara. - Lab Data Result diagrams: 03/31/21 17:32 03/31/21 17:32 Lab Results 03/31/21 03/31/21 03/31/21 Range/Units 17:32 17:32 17:32 WBC 10.7 H (3.8-10.6) k/uL RBC 4.43 (3.80-5.40) m/uL Hgb 14.1 (11.4-16.0) gm/dL Hct 42.4 (34.0-46.0) % MCV 95.7 (80.0-100.0) fL MCH 31.7 (25.0-35.0) pg MCHC 33.2 (31.0-37.0) g/dL RDW 12.6 (11.5-15.5) % Plt Count 314 (150-450) k/uL MPV 7.2 Neutrophils % 58 % Lymphocytes % 31 % Monocytes % 5 % Eosinophils % 3 % Basophils % 1 % Neutrophils # 6.1 (1.3-7.7) k/uL Lymphocytes # 3.3 (1.0-4.8) k/uL Monocytes # 0.6 (0-1.0) k/uL Eosinophils # 0.4 (0-0.7) k/uL Basophils # 0.1 (0-0.2) k/uL PT 10.2 (9.0-12.0) sec INR 0.9 (<1.2) APTT 24.3 (22.0-30.0) sec Sodium 139 (137-145) mmol/L Potassium 3.5 (3.5-5.1) mmol/L Chloride 106 (98-107) mmol/L Carbon Dioxide 25 (22-30) mmol/L Anion Gap 8 mmol/L BUN 9 (7-17) mg/dL Creatinine 0.69 (0.52-1.04) mg/dL Est GFR (CKD-EPI)AfAm >90 (>60 ml/min/1.73 sqM) Est GFR (CKD-EPI)NonAf >90 (>60 ml/min/1.73 sqM) Glucose 72 L (74-99) mg/dL POC Glucose (mg/dL) (75-99) mg/dL POC Glu Floorworker ID Calcium 9.1 (8.4-10.2) mg/dL 03/31/21 Range/Units 19:53 WBC (3.8-10.6) k/uL RBC (3.80-5.40) m/uL Hgb (11.4-16.0) gm/dL Hct (34.0-46.0) % MCV (80.0-100.0) fL MCH (25.0-35.0) pg MCHC (31.0-37.0) g/dL RDW (11.5-15.5) % Plt Count (150-450) k/uL MPV Neutrophils % % Lymphocytes % % Monocytes % % Eosinophils % % Basophils % % Neutrophils # (1.3-7.7) k/uL Lymphocytes # (1.0-4.8) k/uL Monocytes # (0-1.0) k/uL Eosinophils # (0-0.7) k/uL Basophils # (0-0.2) k/uL PT (9.0-12.0) sec INR (<1.2) APTT (22.0-30.0) sec Sodium (137-145) mmol/L Potassium (3.5-5.1) mmol/L Chloride (98-107) mmol/L Carbon Dioxide (22-30) mmol/L Anion Gap mmol/L BUN (7-17) mg/dL Creatinine (0.52-1.04) mg/dL Est GFR (CKD-EPI)AfAm (>60 ml/min/1.73 sqM) Est GFR (CKD-EPI)NonAf (>60 ml/min/1.73 sqM) Glucose (74-99) mg/dL POC Glucose (mg/dL) 86 (75-99) mg/dL POC Glu Floorworker ID Xena Wolff Calcium (8.4-10.2) mg/dL - EKG Data EKG shows normal: sinus rhythm Rate: normal EKG Comments: EKG obtained at 1729 shows sinus rhythm with sinus arrhythmia. Low QRS voltage in precordial leads. Q waves in V1 through V4. Ventricular rate 80, AL interval 121, QRS duration 81, QT/QTC 350/386. Interpretation abnormal ECG - Radiology Data Radiology results: report reviewed Venous Doppler study of the left lower extremity was obtained. Report was reviewed in its entirety. Impression per Dr. Light is negative for DVT. However there does appear to be thrombus within noted varicose veins in the left distal medial thigh. Varicosities appeared to originate from the GSV. Disposition Clinical Impression: Varicose veins of left lower extremity with inflammation, Superficial phlebitis and thrombophlebitis of left leg Disposition: HOME SELF-CARE Condition: Stable Instructions (If sedation given, give patient instructions): Superficial Thrombophlebitis (ED) Additional Instructions: Take an aspirin daily. Continue utilizing compression stockings. You should follow up with a vascular doctor; contact your PCP to facilitate referral. Return to the emergency department with any chest pain, shortness of breath, difficulty breathing, or worsening of condition. Is patient prescribed a controlled substance at d/c from ED?: No Referrals: Zander Dominguez MD [Primary Care Provider] - 1-2 days Cisco Argueta DO [STAFF PHYSICIAN] - 1-2 days Time of Disposition: 19:37
[2021-03-31 17:50] LABS: Basophils # (A) 0.1 k/uL (0-0.2); Basophils % (A) 1 %; Eosinophils # (A) 0.4 k/uL (0-0.7); Eosinophils % (A) 3 %; HCT 42.4 % (34.0-46.0); HGB 14.1 gm/dL (11.4-16.0); Lymphocytes # (A) 3.3 k/uL (1.0-4.8); Lymphocytes % (A) 31 %; MCH 31.7 pg (25.0-35.0); MCHC 33.2 g/dL (31.0-37.0); MCV 95.7 fL (80.0-100.0); Mean Platelet Volume 7.2; Monocytes # (A) 0.6 k/uL (0-1.0); Monocytes % (A) 5 %; Neutrophils # (A) 6.1 k/uL (1.3-7.7); Neutrophils % (A) 58 %; Platelet Count 314 k/uL (150-450); RBC 4.43 m/uL (3.80-5.40); RDW 12.6 % (11.5-15.5); WBC 10.7 k/uL (3.8-10.6)
[2021-03-31 17:57] LABS: INR 0.9 (<1.2); Partial Thromboplastin Time 24.3 sec (22.0-30.0); Prothrombin Time 10.2 sec (9.0-12.0)
[2021-03-31 18:00] LABS: African American GFR (CKD) >90 (>60 ml/min/1.73 sqM); Anion Gap 8 mmol/L; Blood Urea Nitrogen 9 mg/dL (7-17); Calcium 9.1 mg/dL (8.4-10.2); Carbon Dioxide 25 mmol/L (22-30); Chloride 106 mmol/L (98-107); Glucose 72 mg/dL (74-99); Non-African American GFR(CKD) >90 (>60 ml/min/1.73 sqM); Potassium 3.5 mmol/L (3.5-5.1); Sodium 139 mmol/L (137-145)
--- NOTE | 2021-03-31 18:47 | US ---
EXAMINATION TYPE: US venous doppler duplex LE LT DATE OF EXAM: 03/31/2021 6:01 PM COMPARISON: NONE CLINICAL HISTORY: LLE edema, erythema. Patient has hx of varicose veins. Patient presents with left l eg extremity pain, redness, and swelling at area of varicose veins - left distal medial thigh. SIDE PERFORMED: Left TECHNIQUE: The lower extremity deep venous system is examined utilizing real time linear array sonog amie with graded compression, doppler sonography and color-flow sonography. VESSELS IMAGED: Common Femoral Vein Deep Femoral Vein Greater Saphenous Vein * Femoral Vein Popliteal Vein Small Saphenous Vein * Proximal Calf Veins (* superficial vessels) LEFT LOWER EXTREMITY FINDINGS: Grayscale, color doppler, spectral doppler imaging performed of the de ep veins of the lower extremities. There is normal flow, compressibility, vascular waveforms. IMPRESSION: 1. Negative for DVT. 2. However, there appears to be thrombus within noted varicose veins in the left distal medial thigh . Varicoses appear to originate from the GSV.
[2021-03-31 19:54] LABS: Glucose,Whole Blood 86 mg/dL (75-99)
== END 2021-03-31 20:11 | disposition home or self-care (01) ==
LOC: EC 16:26
DX: I83.12 Varicose veins of left lower extremity with inflammation (principal); I80.02 Phlebitis and thrombophlebitis of superficial vessels of left lower extremity; F32.A Depression, unspecified; F17.200 Nicotine dependence, unspecified, uncomplicated; F12.90 Cannabis use, unspecified, uncomplicated; Z90.49 Acquired absence of other specified parts of digestive tract; Z98.51 Tubal ligation status
CPT/HCPCS: 36415; 80048; 85025; 85610; 85730; 93005; 99284